=== PATIENT | female | born 1955 | race Two or more races ===

== ENCOUNTER 2025-02-10 17:43 | Inpatient (IN) | payer OTHER, MEDICAID ==
[~2025-02-10] VITALS: Ht 157.5 cm; Wt 107.0 kg
--- NOTE | 2025-02-10 19:58 | ED.PDOC ---
History of Present Illness HPI Comments This is a 69-year-old female who comes in with chief complaint of a headache all day as well as dizziness and shortness for breath. The patient states that the symptoms started to worsened throughout the day so 911 was called. She states that she fell on January 20 but did not strike her head and ever since she has been having some generalized weakness. Everything started at approximately 7:30 a.m. in the morning. When the paramedics arrived, the patient was complaining of some leg pain and swelling and had an elevated blood pressure with a systolic of 190 Chief Complaint: General Weakness Time Seen by MD: 17:48 Primary Care Provider: unknown Reviewed Notes: Nurses Notes, Field Rep Notes, Medications, Allergies (No allergies to medications) Allergies: Coded Allergies: NO KNOWN ALLERGIES (Unverified , 02/10/25) Information Source: Patient, Emergency Med Personnel Mode of Arrival: EMS Severity: Moderate Timing: Hours Duration: Since onset Prehospital treatment: 12 Lead EKG, Sales Order Specialist, IVF Associated signs and symptoms Generalized weakness with headache, shortness for breath as well as right arm numbness Past Medical History PAST MEDICAL HISTORY: CVA, HTN, [place] Surgical History: Hysterectomy Surgical History (Other): Left elbow surgery ADMISSIONS OFFICER History: No Pertinent ADMISSIONS OFFICER History Family History Family History: No family hx of Cancer, No family hx of DM, No family hx of Heart jami Social History Smoker: Non-Smoker Alcohol: Denies ETOH Use Drugs: Denies Drug Use Lives In: Home Constitutional: reports: weakness; denies: chills, diaphoresis, fatigue, fever, malaise, sweats, others EENTM: denies: blurred vision, double vision, ear bleeding, ear discharge, ear drainage, ear pain, ear ringing, eye pain, eye redness, hearing loss, mouth pain, mouth swelling, nasal discharge, nose bleeding, nose congestion, nose pain, photophobia, tearing, throat pain, throat swelling, voice changes, others Respiratory: reports: shortness of breath; denies: cough, hemoptysis, orthopnea, SOB at rest, SOB with excertion, stridor, wheezing, others Cardiovascular: denies: chest pain, dizzy spells, diaphoresis, Dyspnea on exertion, edema, irregular heart beat, left arm pain, lightheadedness, palpitations, PND, syncope, others Gastrointestinal: denies: abdomen distended, abdominal pain, blood streaked bowels, constipated, diarrhea, dysphagia, difficulty swallowing, hematemesis, melena, nausea, poor appetite, poor fluid intake, rectal bleeding, rectal pain, vomiting, others Genitourinary: denies: abnormal vagina bleeding, burning, dyspareunia, dysuria, flank pain, frequency, hematuria, incontinence, pain, , vagina discharge, urgency, others Neurological: reports: dizziness, headache; denies: fainting, left sided numbness, left sided weakness, numbness, paresthesia, pre-existing deficit, right sided numbness, right sided weakness, seizure, speech problems, tingling, tremors, weakness, others Musculoskeletal: denies: back pain, gout, joint pain, joint swelling, muscle pain, muscle stiffness, neck pain, others Integumetry: denies: bruises, change in color, change in hair/nails, dryness, laceration, lesions, lumps, rash, wounds, others Allergic/Immunocompromised: denies: Difficulty Healing, Frequent Infections, Hives, Itching, others Hematologic/Lymphatic: denies: anemia, blood clots, easy bleeding, easy bruising, swollen glands, others Endocrine: denies: excessive hunger, excessive sweating, excessive thirst, excessive urination, flushing, intolerance to cold, intolerance to heat, unexplained weight gain, unexplained weight loss, others Psychiatric: denies: anxiety, bipolar disorder, depression, hopeless, panic disorder, schizophrenia, sleepless, suicidal, others Physical Exam General Appearance: Moderate Distress, Obese HEENT: Normal ENT Inspection, Pharynx Normal, TMs Normal Neck: Full Range of Motion, Non-Tender, Normal, Normal Inspection Respiratory: Chest Non-Tender, Lungs Clear, No Accessory Muscle Use, No Respiratory Distress, Normal Breath Sounds Cardiovascular: Irregular, No Edema, No JVD, No Murmur, No Gallop Breast Exam: Deferred Gastrointestinal: No Organomegaly, Non Tender, No Pulsatile Mass, Normal Bowel Sounds, Soft Genitalia: Deferred Pelvic: Deferred Rectal: Deferred Extremities: No calf tenderness, Normal capillary refill, Normal inspection, Normal range of motion, Non-tender, No pedal edema Musculoskeletal : Apperance: Normal Neurologic: Alert, cuffer II-XII nml as Tested, Motor Weakness, Normal Affect, Normal Mood, No Sensory Deficits Cerebellar Function: Normal Reflexes: Normal Skin: Dry, Normal Color, Warm Lymphatic: No Adenopathy Was a procedure done? Was a procedure done?: No EKG EKG : Pulse Rate (adult): 68 Buckhorn: Normal Cardiac Rhythm: Afib ST: Nonsp Differential Dx Considerations may include: Generalized weakness, electrolyte imbalance, pneumonia, CVA X-Ray, Labs, Meds, VS Vital Signs Date Time Temp Pulse Resp B/P (MAP) Pulse Ox O2 Delivery O2 Flow Rate FiO2 02/10/25 20:40 98.7 68 16 183/70 (107) 96 98.7 02/10/25 19:58 68 02/10/25 17:53 65 02/10/25 17:53 98.8 68 16 169/67 (101) 98 98.8 Lab Test 02/10/25 20:01 Range/Units White Blood Count 6.7 4.4-10.8 10^3/uL Red Blood Count 5.21 H 4.0-5.20 10^6/uL Hemoglobin 15.8 12.2-16.2 g/dL Hematocrit 46.1 H 36.0-46.0 % Mean Corpuscular Volume 88.5 80.0-100.0 fL Mean Corpuscular Hemoglobin 30.2 28.0-32.0 pg Mean Corpuscular Hemoglobin Concent 34.2 32.0-36.0 g/dL Red Cell Distribution Width 13.5 11.8-14.3 % Platelet Count 206 140-450 10^3/uL Mean Platelet Volume 8.5 6.9-10.8 fL Neutrophils (%) (Auto) 58.3 37.0-80.0 % Lymphocytes (%) (Auto) 27.2 10.0-50.0 % Monocytes (%) (Auto) 8.5 0.0-12.0 % Eosinophils (%) (Auto) 5.0 0.0-7.0 % Basophils (%) (Auto) 1.0 0.0-2.0 % Neutrophils # (Auto) 3.9 1.6-8.6 10 ^3/uL Lymphocytes # (Auto) 1.8 0.4-5.4 10 ^3/uL Monocytes # (Auto) 0.6 0-1.3 10 ^3/uL Eosinophils # (Auto) 0.3 0-0.8 10 ^3/uL Basophils # (Auto) 0.1 0-0.2 10 ^3/uL Nucleated Red Blood Cells 0.1 % Sodium Level 144 136-145 mmol/L Potassium Level 3.8 3.5-5.1 mmol/L Chloride Level 105 98-107 mmol/L Carbon Dioxide Level 30 20-31 mmol/L Anion Gap 9 5-15 Blood Urea Nitrogen 17 9-23 mg/dL Creatinine 1.02 0.550-1.02 mg/dL Glomerular Filtration Rate Calc 60 >90 mL/min BUN/Creatinine Ratio 16.7 10.0-20.0 Serum Glucose 130 H 74-106 mg/dL Calcium Level 10.1 8.7-10.4 mg/dL Troponin I High Sensitivity 78 *H </=34 ng/L IV Hep-Lock was established CT Head indicates: 1. No prior study for comparison 2. Large area of encephalomalacia in the right temporoparietal lobe with tissue density consistent with CSF. IV Hep-Lock was established. The patient's CBC is within normal limits The chemistry panel within normal limits The troponin level is elevated at 78 The patient's potassium is within normal limits Is being started on for just heparin IV A cardiology consult will be obtained The patient is admitted Images Reviewed?: Images reviewed and evaluated by me Time of 1ST Reevaluation: 19:57 Reevaluation 1ST: Unchanged Time of 2ND Reevaluation: 21:11 Reevaluation 2ND: Unchanged Patient Education/Counseling: Diagnosis, Treatment, Prognosis Family Education/Counseling: No Family Present SEPSIS Sepsis Screen Date sepsis recognized/suspect: Feb 10, 2025 Time Sepsis recognized/suspect: 1744 Recent Procedure: No On Antibiotic Therapy: No Respiratory Rate >20: No Heart Rate >90: No Temp<36 C (96.8 F) or >38.3 C: No SBP <90 or MAP <65 mmHG: No New Acute Mental Status Change: No Is the patient on CPAP, BIPAP,: No Physician Orders Urinalysis (02/10/25 17:51) Chest Two Views Routine (02/10/25 17:51) Heplock Iv (02/10/25 17:51) Sales Order Specialist (02/10/25 17:51) Blood Pressure (02/10/25 17:51) Pulse Oximetry (02/10/25 17:51) Electrocardigram (02/10/25 17:51) Head Without Contrast (02/10/25 17:51) Troponin-I Hs (02/10/25 18:51) Troponin-I Hs (02/10/25 20:51) Electrocardigram (02/10/25 18:51) Electrocardigram (02/10/25 20:51) Heparin Sodium (Porcine) (02/10/25 21:15) Aspirin Tablet (02/12/25 10:00) Heparin Drip/D5w 100units/Ml (02/10/25 21:15) Echo 2d Mode Cardiac Dop (02/10/25 21:01) Vital Signs Date Time Temp Pulse Resp B/P (MAP) Pulse Ox O2 Delivery O2 Flow Rate FiO2 02/10/25 20:40 98.7 68 16 183/70 (107) 96 98.7 02/10/25 19:58 68 02/10/25 17:53 65 02/10/25 17:53 98.8 68 16 169/67 (101) 98 98.8 Laboratory Tests Test 02/10/25 20:01 White Blood Count 6.7 10^3/uL (4.4-10.8) Departure 1 Departure Time of Disposition: 21:10 Impression: Primary Impression: Non-STEMI (non-ST elevated myocardial infarction) Disposition: 09 ADMITTED INPATIENT Admit to: Tele Condition: Fair Critical Care Note Critical Care Time?: Yes (45 min-critical care time only) Stability Stability form required: Yes Unstable for transfer: Telemetry monitoring (Telemetry monitoring required), ED Physician Assesment (Clinical assesment) Heart Score Heart Score: Heart Score Response (Comments) Value History Moderate Suspicious 1 EKG Normal 0 Age >65 2 Risk Factors 1 or 2 risk factors 1 Troponin Normal limit 0 Total 4 I personally scribed for TETO MCKEON MD ([email or web address]) on 02/10/25 at 20:59. Electronically submitted by Magdy Quinonez ([email or web address]). TETO MCKEON MD Feb 10, 2025 19:58
[2025-02-10 20:23] LABS: Basophils # (auto) 0.1 10 ^3/uL (0-0.2); Eosinophils # (auto) 0.3 10 ^3/uL (0-0.8); Hematocrit 46.1 % (36.0-46.0); Hemoglobin 15.8 g/dL (12.2-16.2); Lymphocytes # (auto) 1.8 10 ^3/uL (0.4-5.4); Lymphocytes % (auto) 27.2 % (10.0-50.0); Mean Corpuscular Hemoglobin 30.2 pg (28.0-32.0); Mean Corpuscular Hgb Conc. 34.2 g/dL (32.0-36.0); Mean Corpuscular Volume 88.5 fL (80.0-100.0); Monocytes # (auto) 0.6 10 ^3/uL (0-1.3); Monocytes % (auto) 8.5 % (0.0-12.0); Neutrophils # (auto) 3.9 10 ^3/uL (1.6-8.6); Neutrophils % (auto) 58.3 % (37.0-80.0); Nucleated Red Blood Cells % 0.1 %; Platelet Count (auto) 206 10^3/uL (140-450); Red Blood Cells 5.21 10^6/uL (4.0-5.20); Red Cell Distribution Width 13.5 % (11.8-14.3); White Blood Cell 6.7 10^3/uL (4.4-10.8)
[2025-02-10 20:48] LABS: Chloride 105 mmol/L (98-107); Potassium 3.8 mmol/L (3.5-5.1); Sodium 144 mmol/L (136-145)
[2025-02-10 20:49] LABS: Anion Gap 9 (5-15); Calcium 10.1 mg/dL (8.7-10.4); Carbon Dioxide 30 mmol/L (20-31)
[2025-02-10 20:54] LABS: BUN/Creatinine Ratio 16.7 (10.0-20.0); Blood Urea Nitrogen 17 mg/dL (9-23)
[2025-02-10 20:55] LABS: Glucose 130 mg/dL (74-106)
--- NOTE | 2025-02-10 20:55 | DVH ---
EXAM: CT HEAD WITHOUT CONTRAST INDICATION: BOOGIE TECHNIQUE: CT of the head without intravenous contrast. Radiation Dose Information: CT Dose: CTDI volume is 64.52 mGy. Dose-length product is 1271.22 mGy*cm The dose indicators for CT are the volume Computed Tomography (CT) Dose Index (CTDIvol) and the Dose Length Product (DLP), and are measured in units of mGy and mGy-cm, respectively. These indicators are not patient dose, but values generated from the CT scanner acquisition factors. The report includes radiation exposure data for exposures received during this examination. COMPARISON: None FINDINGS: There is no evidence of acute intracranial hemorrhage, extra-axial collection, mass effect, midline s hift, herniation or hydrocephalus. Replacement of the right temporal/Parietal lobe by large area of encephalomalacia with tissue density of 4 Hounsfield units consistent with CSF. The ventricles, sulci and cisterns are age appropriate. The rice-white differentiation is intact. Patchy periventricular and subcortical white matter hypoattenuation is nonspecific but may be related to small vessel ischemic disease. The visualized paranasal sinuses and mastoid air cells are clear. The surrounding soft tissues and osseous structures are unremarkable. IMPRESSION: 1. No prior study for comparison 2. Large area of encephalomalacia in the right temporoparietal lobe with tissue density consistent wi th CSF.
--- NOTE | 2025-02-10 21:00 | DVH ---
EXAM: XY CHEST TWO VIEWS ROUTINE CLINICAL HISTORY: weakness TECHNIQUE: AP and lateral views of the chest WID: COMPARISON: None FINDINGS: Lines and tubes: None Chest: Mild cardiomegaly. Calcified plaque projects over the aortic arch. No pleural effusion, pneumothorax, or consolidation. The osseous structures are grossly intact. Multilevel thoracic spondylosis. IMPRESSION: Mild cardiomegaly without CHF or pneumonia.
[2025-02-10 22:29] LABS: INR 0.97 (0.9-1.15); Partial Thromboplastin Time 26.2 SEC (24.5-34.5); Prothrombin Time 10.3 sec (9.3-11.8)
[2025-02-10] MEDS ORDERED: DOCUSATE SOD 100 MG CAP PO PRN (23:00)
[2025-02-10 23:35] LABS: Urine Bacteria None Seen /hpf (None Seen)
--- NOTE | 2025-02-10 23:47 | DVHHP2 ---
History of Present Illness Reason for Visit: Non-STEMI (non-ST elevated myocardial infarction) History of Present Illness The patient is a 69-year-old female with past medical history of CVA, hypertens ion, and LA who presented to [facility] ED with complaint of headache. Patient reports she has been experiencing headache for the past two days, associated with dizziness, shortness of breaths. She states that she fell on January 20 but did not strike her head and ever since she has been having some generalized weakness. Patient was seen and evaluated in the ED, laboratory data shows WBC 6.7, platelets 206, sodium 144, potassium 3.8, BUN 17, creatinine 1.02, glucose 130, calcium 10.1, troponin 78, blood pressure 183/70, heart rate 68, temperature 98.7 F, O2 saturation 96% on oxygen. Chest x-ray revealing mild cardiomegaly without CHF or pneumonia. Head CT revealing large area of encephalomalacia in the right temporoparietal lobe with tissue density consistent with CSF. Please see medication orders section in the computer. On my assessment, patient denied chest pain, no headache, no dizziness, no diaphoresis, currently on oxygen, no nausea, no vomiting, no fever, no chills. Patient was admitted for further evaluation and medical management. Past Medical History CVA, HTN, LA Past Surgical History Hysterectomy, Left elbow surgery Family History Reviewed, noncontributory to the management of this case. Past Social History The patient lives at home, denies smoking, alcohol or illicit drugs abuse. Review of Systems Constitutional: Yes: Weakness; No: Fever, Chills, Sweats, Malaise, Other Eyes: No: Pain, Vision change, Conjunctivae inflammation, Eyelid inflammation, Other, Redness ENT: No: Ear pain, Ear discharge, Nose pain, Nose discharge, Nose congestion, Mouth pain, Mouth swelling, Throat pain, Throat swelling, Other Respiratory: Shortness of breath; No: Cough, Dry, SOB with excertion, Wheezing, Hemoptysis, Pleuritic Pain, Sputum, Wheezing, Other Cardiovascular: No: Chest Pain, Palpitations, Orthopnea, Paroxysmal Noc. Dyspnea, Edema, Lt Headedness, Other Gastrointestinal: No: Nausea, Vomiting, Abdominal Pain, Diarrhea, Constipation, Melena, Hematochezia, Other Genitourinary: No Dysuria, No Frequency, No Incontinence, No Hematuria, No Retention, No Other Musculoskeletal: No: other, neck pain, shoulder pain, arm pain, back pain, hand pain, leg pain, foot pain Skin: No: Rash, Lesions, Jaundice, Bruising, Other Neurological: Other (Dizziness, headache.); No: Weakness, Numbness, Incoordination, Change in speech, Confusion, Seizures Allergies: Coded Allergies: NO KNOWN ALLERGIES (Unverified , 02/10/25) Medications Current Medications Medications Dose Ordered Sig/Cristine Route Start Time Stop Time Status Last Admin Dose Admin Aspirin 81 mg DAILY PO 02/12/25 10:00 Heparin Sodium/ Dextrose 250 ml @ 10 mls/hr Q24H IV 02/10/25 21:15 Amlodipine Besylate 5 mg DAILY PO 02/11/25 10:00 Hydralazine HCl 10 mg Q6HP PRN IV 02/10/25 23:00 Atorvastatin Calcium 20 mg HS PO 02/11/25 22:00 Azithromycin 250 ml @ 125 mls/hr DAILY IV 02/11/25 10:00 UNV Sodium Chloride 10 ml Q8HR IV 02/11/25 06:00 Acetaminophen/ Hydrocodone Bitart 1 tab Q4HP PRN PO 02/10/25 23:00 Ondansetron HCl 4 mg Q4HP PRN IV 02/10/25 23:00 Docusate Sodium 100 mg BIDPRN PRN PO 02/10/25 23:00 Acetaminophen 650 mg Q6HP PRN PO 02/10/25 23:00 Exam Vital Signs Vital Signs Date Time Temp Pulse Resp B/P (MAP) Pulse Ox O2 Delivery O2 Flow Rate FiO2 02/10/25 23:46 98.7 82 18 193/70 (111) 92 98.7 General Appearance: Alert, Oriented X3, Cooperative, No acute distress HEENT: Atraumatic, PERRLA, EOMI, Mucous membr. moist/pink Respiratory: Normal air movement Cardiovascular: Regular rate, Normal S1, Normal S2, No murmurs Abdominal: Normal bowel sounds, Soft, No tenderness, No hepatospenomegaly, No masses Extremities: No clubbing, No cyanosis, No edema, Normal pulses, No tenderness/swelling Skin: No rashes, No breakdown, No significant lesion Neuro: Normal speech, Normal tone, Sensation intact, Cranial nerves 3-12 NL, Reflexes 2+, Other (Generalized weakness) Psych/Mental Status: Mental status NL, Mood NL Labs/Xrays Labs Test 02/10/25 23:00 02/10/25 22:50 02/10/25 20:01 Range/Units Troponin I High Sensitivity 81 *H </=34 ng/L White Blood Count 6.7 4.4-10.8 10^3/uL Red Blood Count 5.21 H 4.0-5.20 10^6/uL Hemoglobin 15.8 12.2-16.2 g/dL Hematocrit 46.1 H 36.0-46.0 % Mean Corpuscular Volume 88.5 80.0-100.0 fL Mean Corpuscular Hemoglobin 30.2 28.0-32.0 pg Mean Corpuscular Hemoglobin Concent 34.2 32.0-36.0 g/dL Red Cell Distribution Width 13.5 11.8-14.3 % Platelet Count 206 140-450 10^3/uL Mean Platelet Volume 8.5 6.9-10.8 fL Neutrophils (%) (Auto) 58.3 37.0-80.0 % Lymphocytes (%) (Auto) 27.2 10.0-50.0 % Monocytes (%) (Auto) 8.5 0.0-12.0 % Eosinophils (%) (Auto) 5.0 0.0-7.0 % Basophils (%) (Auto) 1.0 0.0-2.0 % Neutrophils # (Auto) 3.9 1.6-8.6 10 ^3/uL Lymphocytes # (Auto) 1.8 0.4-5.4 10 ^3/uL Monocytes # (Auto) 0.6 0-1.3 10 ^3/uL Eosinophils # (Auto) 0.3 0-0.8 10 ^3/uL Basophils # (Auto) 0.1 0-0.2 10 ^3/uL Nucleated Red Blood Cells 0.1 % Prothrombin Time 10.3 9.3-11.8 sec Prothrombin Time INR 0.97 0.9-1.15 Activated Partial Thromboplast Time 26.2 24.5-34.5 SEC Sodium Level 144 136-145 mmol/L Potassium Level 3.8 3.5-5.1 mmol/L Chloride Level 105 98-107 mmol/L Carbon Dioxide Level 30 20-31 mmol/L Anion Gap 9 5-15 Blood Urea Nitrogen 17 9-23 mg/dL Creatinine 1.02 0.550-1.02 mg/dL Glomerular Filtration Rate Calc 60 >90 mL/min BUN/Creatinine Ratio 16.7 10.0-20.0 Serum Glucose 130 H 74-106 mg/dL Calcium Level 10.1 8.7-10.4 mg/dL PATIENT: ABHISHEK DICKERSON ACCT: [id number] UNIT: [id number] : 1955 LOC: ER ROOM / BED: / AGE / SEX: 69 / F ADM STATUS: REG ER SERVICE [id number] ORDERING PHYSICIAN: TETO MCKEON MD PROCEDURE(s): HWOCT - HEAD WITHOUT CONTRAST REASON: BOOGIE ORDER NUMBER(s): [id number], ACCESSION NUMBER(s): [id number] EXAM: CT HEAD WITHOUT CONTRAST INDICATION: BOOGIE TECHNIQUE: CT of the head without intravenous contrast. Radiation Dose Information: CT Dose: CTDI volume is 64.52 mGy. Dose-length product is 1271.22 mGy*cm The dose indicators for CT are the volume Computed Tomography (CT) Dose Index (CTDIvol) and the Dose Length Product (DLP), and are measured in units of mGy and mGy-cm, respectively. These indicators are not patient dose, but values generated from the CT scanner acquisition factors. The report includes radiation exposure data for exposures received during this examination. COMPARISON: None FINDINGS: There is no evidence of acute intracranial hemorrhage, extra-axial collection, mass effect, midline shift, herniation or hydrocephalus. Replacement of the right temporal/Parietal lobe by large area of encephalomalacia with tissue density of 4 Hounsfield units consistent with CSF. The ventricles, sulci and cisterns are age appropriate. The rice-white differentiation is intact. Patchy periventricular and subcortical white matter hypoattenuation is nonspecific but may be related to small vessel ischemic disease. The visualized paranasal sinuses and mastoid air cells are clear. The surrounding soft tissues and osseous structures are unremarkable. IMPRESSION: 1. No prior study for comparison 2. Large area of encephalomalacia in the right temporoparietal lobe with tissue density consistent with CSF. ORDERING PHYSICIAN: TETO MCKEON MD PROCEDURE(s): CXR2 - CHEST TWO VIEWS ROUTINE REASON: weakness ORDER NUMBER(s): [id number], ACCESSION NUMBER(s): [id number] EXAM: XY CHEST TWO VIEWS ROUTINE CLINICAL HISTORY: weakness TECHNIQUE: AP and lateral views of the chest WID: COMPARISON: None FINDINGS: Lines and tubes: None Chest: Mild cardiomegaly. Calcified plaque projects over the aortic arch. No pleural effusion, pneumothorax, or consolidation. The osseous structures are grossly intact. Multilevel thoracic spondylosis. IMPRESSION: Mild cardiomegaly without CHF or pneumonia. Assessment/Plan Assessment/Plan Non-STEMI (non-ST elevated myocardial infarction) Hypertensive urgency Generalized weakness Plan 1. Admit to telemetry unit 2. Breathing treatment 3. Pain control management 4. Management of fluids and electrolytes 5. Consultation for Cardiology/hospitalist 6. Diagnostic tests chest x-ray 7. DVT prophylaxis-on heparin 8. Repeat labs CBC, CMP in a.m. 9. Continue with current medical management 10. Treatment plan discussed with patient and RN. Patient verbalized understanding. Plan discussed with: Patient, Other (RN) My Orders Orders - NETTIE HAYNES DNP Procedure Category Date Status Time Amlodipine Tablet PHA 02/11/25 In Process (Norvasc Tablet) 10:00 Hydralazine Injection PHA 02/10/25 In Process (Apresoline Inject 23:00 Atorvastatin (Lipitor) PHA 02/11/25 In Process 22:00 Azithromycin 500mg/ PHA 02/11/25 Pending 250ml (Zithromax 50 10:00 Azithromycin 500mg/ PHA 02/10/25 In Process 250ml (Zithromax 50 23:00 Allergies LUIZA 02/10/25 In Process 22:49 Code Status CODE 02/10/25 Transmitted 22:49 Sodium Chloride Lock PHA 02/11/25 In Process (Saline Lock Ns) 06:00 Oxygen Per Hour RT 02/10/25 Transmitted 22:49 Hydrocodone-Acet PHA 02/10/25 In Process 5/325mg Tab (Grant 23:00 Ondansetron Hcl PHA 02/10/25 In Process (Zofran) 23:00 Docusate Sodium PHA 02/10/25 In Process Capsule (Colace 23:00 Complete Blood Count LAB 02/11/25 Verified 04:00 Comprehensive LAB 02/11/25 Verified Metabolic Panel 04:00 Cardiac DIET 02/11/25 Transmitted Diet-2gna,Lofat,Lochol Breakfast Condition: Serious LUIZA 02/10/25 In Process 22:49 Acetaminophen Tablet PHA 02/10/25 In Process (Tylenol Tablet) 23:00 Bedrest With Bathroom LUIZA 02/10/25 In Process Privileg 22:49 Sequential LUIZA 02/10/25 In Process Compression Device Problem List: (1) Non-STEMI (non-ST elevated myocardial infarction) (2) Hypertensive urgency (3) Generalized weakness Date of Service: Feb 10, 2025 Billing Provider: NETTIE HAYNES DNP Common Visit Codes: [id number] INP/OBS CARE (HIGH) NETTIE HAYNES DNP Feb 10, 2025 23:47
[2025-02-11] VITALS (14 sets, daily range): BP systolic 123–178; BP diastolic 30–90; PULSE 66–88; RESP 17–20; TEMP 98.2–99.6; O2SAT 88–99
[2025-02-11] MEDS ORDERED: NITROGLYCERIN 0.4 MG SL TAB SL PRN
[2025-02-11] MEDS ORDERED: MORPHINE SULFATE INJ 2 MG/ml SYRG IV PRN
[2025-02-11] MEDS: MORPHINE SULFATE 4 MG/ML SYR/VIAL ONE (00:13)
[2025-02-11] MEDS: ONDANSETRON HCL 4 MG/2 ML VIAL ONE (00:13)
[2025-02-11] MEDS: AZITHROMYCIN 500MG/ 250ML 250 ML IV ONE ×2 (00:13→00:19)
[2025-02-11] MEDS: HEPARIN SODIUM (PORCINE) 5000 UNITS/ML 1ML VIAL ONE (00:14)
[2025-02-11 00:18] LABS: Urine Amorphous Crystal FEW /hpf (None Seen); Urine Blood TRACE /uL (Negative); Urine Clarity Ex.Turbid (Clear); Urine Color Colorless (Yellow); Urine Protein, UAD TRACE (Negative); Urine Specific Gravity 1.021 (1.001-1.035); Urine Squamous Epithelial Cell None Seen /hpf (<5); Urine Urobilinogen Normal (Negative); Urine WBC 11 /HPF (0-5)
[2025-02-11] MEDS: ONDANSETRON HCL 4 MG/2 ML VIAL IV ONE (00:19)
[2025-02-11] MEDS: MORPHINE SULFATE 4 MG/ML SYR/VIAL IV ONE (00:19)
[2025-02-11] MEDS: HEPARIN SODIUM (PORCINE) 5000 UNITS/ML 1ML VIAL IV ONE ×2 (00:20→13:39)
[2025-02-11] MEDS: hydrALAZINE HCL 20 MG/ML VL IV PRN (01:16)
[2025-02-11] MEDS: HEPARIN DRIP/D5W 100UNITS/ML 250 ML IV SCH ×2 (01:18→11:45)
[2025-02-11] MEDS: HEPARIN DRIP/D5W 100UNITS/ML 250 ML IV ONE (01:32)
[2025-02-11] MEDS: hydrALAZINE HCL 20 MG/ML VL ONE (01:33)
[2025-02-11] MEDS: ACETAMINOPHEN 325 MG TAB PO PRN (03:19)
[2025-02-11] MEDS: SODIUM CHLOR 0.9% PF (SALINE LOCK) 10ML VIAL/SYR IV SCH (06:12)
[2025-02-11 08:01] LABS: Basophils # (auto) 0.1 10 ^3/uL (0-0.2); Basophils % (auto) 0.8 % (0.0-2.0); Eosinophils # (auto) 0.3 10 ^3/uL (0-0.8); Eosinophils % (auto) 3.2 % (0.0-7.0); Hematocrit 41.6 % (36.0-46.0); Hemoglobin 14.4 g/dL (12.2-16.2); Lymphocytes % (auto) 22.1 % (10.0-50.0); Mean Corpuscular Hemoglobin 30.5 pg (28.0-32.0); Mean Corpuscular Hgb Conc. 34.6 g/dL (32.0-36.0); Mean Corpuscular Volume 88.2 fL (80.0-100.0); Monocytes # (auto) 0.7 10 ^3/uL (0-1.3); Monocytes % (auto) 8.1 % (0.0-12.0); Neutrophils % (auto) 65.8 % (37.0-80.0); Nucleated Red Blood Cells % 0.2 %; Platelet Count (auto) 192 10^3/uL (140-450); Red Blood Cells 4.71 10^6/uL (4.0-5.20); Red Cell Distribution Width 13.7 % (11.8-14.3); White Blood Cell 9.1 10^3/uL (4.4-10.8)
[2025-02-11 08:14] LABS: INR 1.02 (0.9-1.15); Partial Thromboplastin Time 29.6 SEC (24.5-34.5); Prothrombin Time 10.8 sec (9.3-11.8)
[2025-02-11 08:17] LABS: Albumin 4.2 g/dL (3.2-4.8); Alkaline Phosphatase 105 U/L (46-116); Anion Gap 10 (5-15); BUN/Creatinine Ratio 14.5 (10.0-20.0); Blood Urea Nitrogen 12 mg/dL (9-23); Calcium 9.1 mg/dL (8.7-10.4); Carbon Dioxide 25 mmol/L (20-31); Potassium 3.5 mmol/L (3.5-5.1); Sodium 143 mmol/L (136-145); Total Protein 6.8 g/dL (5.7-8.2)
[2025-02-11 08:18] LABS: Bilirubin, Total 0.7 mg/dL (0.2-1.0)
[2025-02-11 08:20] LABS: Alanine Aminotransferase 110 U/L (7-40); Aspartate Aminotransferase 207 U/L (<34); Chloride 108 mmol/L (98-107); Glucose 109 mg/dL (74-106)
[2025-02-11] MEDS: amLODIPine BESYLATE 5 MG TAB PO SCH (09:45)
[2025-02-11] MEDS ORDERED: AZITHROMYCIN 500MG/ 250ML 250 ML IV SCH (10:00)
--- NOTE | 2025-02-11 11:48 | CONS ---
Pharmacy Clinical Information: GIVE HEPARIN BOLUS 5000 UNITS X1 THEN INCREASE HEPARIN DRIPS RATE TO 1300 UNITS/HR. NEXT APTT @ 1800 PER RX PROTOCOL. BEBETO HANSON CONFIRMED AND READ BACK Karen Torres PHARMACIST Feb 11, 2025 11:48
--- NOTE | 2025-02-11 13:35 | DVHPN2 ---
Reviewed: Care Plan, H&P, Labs, Medications, Previous Orders, Radiology Changes from previous H/P or p: No Changes Eyes: No Pain, No Vision change, No Conjunctivae inflammation, No Eyelid inflammation, No Other, No Redness ENT: No Ear pain, No Ear discharge, No Nose pain, No Nose discharge, No Nose congestion, No Mouth pain, No Mouth swelling, No Throat pain, No Throat swelling, No Other Cardiovascular: No Chest Pain, No Palpitations, No Orthopnea, No Paroxysmal Noc. Dyspnea, No Edema, No Lt Headedness, No Other Respiratory: No Cough, No Dry; Shortness of breath; No SOB with excertion, No Wheezing, No Hemoptysis, No Pleuritic Pain, No Sputum, No Other Gastrointestinal: No Nausea, No Vomiting, No Abdominal Pain, No Diarrhea, No Constipation, No Melena, No Hematochezia, No Other Genitourinary: No Dysuria, No Frequency, No Incontinence, No Hematuria, No Retention, No Other Musculoskeletal: No other, No neck pain, No shoulder pain, No arm pain, No back pain, No hand pain, No leg pain, No foot pain Skin: No Rash, No Lesions, No Jaundice, No Bruising, No Other Objective Vitals Vital Signs Date Time Temp Pulse Resp B/P (MAP) Pulse Ox O2 Delivery O2 Flow Rate FiO2 02/11/25 09:47 159/63 02/11/25 08:37 98.2 69 18 95 98.2 02/11/25 01:42 Room Air* 0 21 Intake/Output Intake and Output 02/11/25 07:00 Intake Total 250 ml Balance 250 ml Intake Oral 200 ml IV Total 50 ml Medications Current Medications Medications Dose Ordered Sig/Cristine Route Start Time Stop Time Status Last Admin Dose Admin Aspirin 81 mg DAILY PO 02/12/25 10:00 Amlodipine Besylate 5 mg DAILY PO 02/11/25 10:00 02/11/25 09:45 5 MG Hydralazine HCl 10 mg Q6HP PRN IV 02/10/25 23:00 02/11/25 09:47 10 MG Atorvastatin Calcium 20 mg HS PO 02/11/25 22:00 Sodium Chloride 10 ml Q8HR IV 02/11/25 06:00 02/11/25 06:12 10 ML Acetaminophen/ Hydrocodone Bitart 1 tab Q4HP PRN PO 02/10/25 23:00 Ondansetron HCl 4 mg Q4HP PRN IV 02/10/25 23:00 Docusate Sodium 100 mg BIDPRN PRN PO 02/10/25 23:00 Acetaminophen 650 mg Q6HP PRN PO 02/10/25 23:00 02/11/25 03:19 650 MG Nitroglycerin 0.4 mg Q5MINP PRN SL 02/11/25 00:00 Morphine Sulfate 2 mg Q30M PRN IV 02/11/25 00:00 Heparin Sodium/ Dextrose 250 ml @ 13 mls/hr [id number] IV 02/11/25 11:45 Laboratory Results Laboratory Tests 02/11/25 07:20 Chemistry Test 02/10/25 20:01 02/11/25 07:20 Calcium Level 10.1 mg/dL (8.7-10.4) 9.1 mg/dL (8.7-10.4) Albumin 4.2 g/dL (3.2-4.8) Total Protein 6.8 g/dL (5.7-8.2) Coagulation Test 02/10/25 20:01 02/11/25 07:20 Prothrombin Time 10.3 sec (9.3-11.8) 10.8 sec (9.3-11.8) Prothrombin Time INR 0.97 (0.9-1.15) 1.02 (0.9-1.15) Activated Partial Thromboplast Time 26.2 SEC (24.5-34.5) 29.6 SEC (24.5-34.5) LFT Test 02/11/25 07:20 Alanine Aminotransferase (ALT) 110 U/L (7-40) H Alkaline Phosphatase 105 U/L (46-116) Aspartate Amino Transferase (AST) 207 U/L (<34) H Total Bilirubin 0.7 mg/dL (0.2-1.0) Urinalysis Test 02/10/25 23:00 Urine Color Colorless (Yellow) Urine Clarity Ex.turbid (Clear) Urine pH 7.0 (5.0-9.0) Urine Specific [place] 1.021 (1.001-1.035) Urine Protein Trace (Negative) H Urine Ketones Negative (Negative) Urine Blood Trace /uL (Negative) H Urine Nitrite Negative (Negative) Urine Bilirubin Negative (Negative) Urine Urobilinogen Normal mg/dL (Negative) Urine Leukocyte Esterase Negative /uL (Negative) Urine RBC 4 /hpf (0 - 4) Urine Microscopic WBC 11 /HPF (0-5) H Urine Squamous Epithelial Cells None seen /hpf (<5) Urine Amorphous Crystals Few /hpf (None Seen) Urine Bacteria None seen /hpf (None Seen) Urine Glucose Normal mg/dL (Normal) Labs and/or images reviewed: Labs reviewed by me, Image(s) reviewed by me Assessment/Plan Assessment/Plan Elevated troponin rule out coronary artery disease: Troponin slightly elevated 74 Heparin per protocol, treatment per ACS protocol, cardiology consult by Dr. 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
--- NOTE | 2025-02-11 14:32 | DVHCONRES ---
Date Seen: Feb 11, 2025 Resident Creating Document: GIORGIO MARQUEZ RESIDENT Referring Physician Dr. 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 According to the patient, 1 week ago while she was lying down with the travel pillow under her neck, she had an onset of a headache which she localizes to the back of her head, 10/10 in intensity without any exacerbating or relieving factors. Per patient, headache has been continuing off and on for the last 1 week which is what prompted this visit to the hospital. Headache was associated with severe generalized weakness, denies any vision changes. On review of systems patient is complaining of fatigue, chills, shortness of breath on exertion, loss of appetite. Currently patient denies any active ongoing headaches or chest pain or dyspnea. Serial troponins were 78, 74, 81. EKG did not show any ST elevations or depressions. Patient notes uses a walker and a cane at baseline to ambulate. However, patient does note she has had reduced mobility for the last 4 weeks. 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, hypertension, NSTEMI type 2, sleep apnea on CPAP Past Surgical History Cholecystectomy, x2, left elbow surgery s/p fracture Family History: Asthma Cerebrovascular accident (CVA) G8 MOTHER Diabetes mellitus G8 MOTHER FH: heart attack Hypertension G8 MOTHER Social History Smoking: Denies Alcohol: Denies Drugs: Denies Allergies: Coded Allergies: NO KNOWN ALLERGIES (Unverified , 02/10/25) Current Medications Current Medications Medications (Trade) Dose Ordered Sig/Cristine Route PRN Reason Start Time Stop Time Status Last Admin Aspirin 81 mg DAILY PO 02/12/25 10:00 Heparin Sodium/ Dextrose 250 ml @ 10 mls/hr Q24H IV 02/10/25 21:15 02/11/25 11:34 DC 02/11/25 01:18 Amlodipine Besylate (Norvasc Tablet) 5 mg DAILY PO 02/11/25 10:00 02/11/25 09:45 Hydralazine HCl (Apresoline Injection) 10 mg Q6HP PRN IV SBP>150 02/10/25 23:00 02/11/25 09:47 Atorvastatin Calcium (Lipitor) 20 mg HS PO 02/11/25 22:00 Azithromycin 250 ml @ 125 mls/hr DAILY IV 02/11/25 10:00 02/11/25 01:04 DC Sodium Chloride (Saline Lock Ns) 10 ml Q8HR IV 02/11/25 06:00 02/11/25 06:12 Acetaminophen/ Hydrocodone Bitart ([place] 5/325MG Tab) 1 tab Q4HP PRN PO MODERATE PAIN (4-6 PAIN SCALE) 02/10/25 23:00 Ondansetron HCl (Zofran) 4 mg Q4HP PRN IV NAUSEA / VOMITING 02/10/25 23:00 Docusate Sodium (Colace Capsule) 100 mg BIDPRN PRN PO FOR CONSTIPATION 02/10/25 23:00 Acetaminophen (Tylenol Tablet) 650 mg Q6HP PRN PO PAIN SCALE 1-3 OR TEMP>100.4 02/10/25 23:00 02/11/25 03:19 Nitroglycerin (Ntrostat Sublingual) 0.4 mg Q5MINP PRN SL FOR CHEST PAIN 02/11/25 00:00 Morphine Sulfate 2 mg Q30M PRN IV FOR CHEST PAIN 02/11/25 00:00 Heparin Sodium/ Dextrose 250 ml @ 13 mls/hr [id number] IV 02/11/25 11:45 02/11/25 11:45 Review of Systems Patient seen and examined at bedside. Patient is alert and oriented to time, place person and responding to all questions. General: Fatigue, chills Eyes: No Pain, No Vision change, No Conjunctivae inflammation, No Eyelid inflammation, No Other, No Redness ENT: No Ear pain, No Ear discharge, No Nose pain, No Nose discharge, No Nose congestion, No Mouth pain, No Mouth swelling, No Throat pain, No Throat swelling, No Other Cardiovascular: No Chest Pain, No Palpitations, No Orthopnea, No Paroxysmal No Dyspnea, No Edema, No Lt Headedness, No Other Respiratory: No Cough, No Dry, No Shortness of breath, SOB with exertion, No Wheezing, No Hemoptysis, No Pleuritic Pain, No Sputum, No Other Gastrointestinal: Nausea, No Vomiting, No Abdominal Pain, No Diarrhea, No Constipation, No Melena, No Hematochezia, No Other Genitourinary: No Dysuria, No Frequency, No Incontinence, No Hematuria, No Retention, No Other Musculoskeletal: No other, No neck pain, No shoulder pain, No arm pain, No back pain, No hand pain, No leg pain, No foot pain Skin: No Rash, No Lesions, No Jaundice, No Bruising, No Other Vital Signs Vital Signs Date Time Temp Pulse Resp B/P (MAP) Pulse Ox O2 Delivery O2 Flow Rate FiO2 02/11/25 09:47 159/63 02/11/25 08:37 98.2 69 18 95 98.2 02/11/25 01:42 Room Air* 0 21 Physical Exam General Appearance: Cooperative. Well developed. Well nourished. NAD Head Exam: Normal inspection Neck Exam: Normal inspection. Non-tender. Normal alignment Pulmonary/Respiratory: Chest non-tender. slightly Decreased bilateral breath sounds, no crackles Cardiovascular/Chest: Regular rate and rhythm. No murmurs. No JVD. Peripheral Pulses: 2+ Radial (R). 2+ Radial (L). 2+ Pedal (R). 2+ Pedal (L) Abdominal Exam: Normal bowel sounds. Soft. normal abdomen, no visible veins, Nontender. No hepatospenomegaly. No masses Lower extremities: 1+ lower extremity edema, bilateral calf tenderness to palpation (positive Holile sign) Neuro/Mental Status: A&O x4. Coherent. Thoughts/Psych: Normal thought pattern. Appropriate mood and affect. Good judgement and insight Skin Exam: Normal inspection. Normal color. Warm. Dry Labs/Diagnostic Data Labs Test 02/11/25 07:20 02/10/25 23:00 02/10/25 22:50 Range/Units White Blood Count 9.1 # 4.4-10.8 10^3/uL Red Blood Count 4.71 4.0-5.20 10^6/uL Hemoglobin 14.4 12.2-16.2 g/dL Hematocrit 41.6 36.0-46.0 % Mean Corpuscular Volume 88.2 80.0-100.0 fL Mean Corpuscular Hemoglobin 30.5 28.0-32.0 pg Mean Corpuscular Hemoglobin Concent 34.6 32.0-36.0 g/dL Red Cell Distribution Width 13.7 11.8-14.3 % Platelet Count 192 140-450 10^3/uL Mean Platelet Volume 8.5 6.9-10.8 fL Neutrophils (%) (Auto) 65.8 37.0-80.0 % Lymphocytes (%) (Auto) 22.1 10.0-50.0 % Monocytes (%) (Auto) 8.1 0.0-12.0 % Eosinophils (%) (Auto) 3.2 0.0-7.0 % Basophils (%) (Auto) 0.8 0.0-2.0 % Neutrophils # (Auto) 6.0 1.6-8.6 10 ^3/uL Lymphocytes # (Auto) 2.0 0.4-5.4 10 ^3/uL Monocytes # (Auto) 0.7 0-1.3 10 ^3/uL Eosinophils # (Auto) 0.3 0-0.8 10 ^3/uL Basophils # (Auto) 0.1 0-0.2 10 ^3/uL Nucleated Red Blood Cells 0.2 % Prothrombin Time 10.8 9.3-11.8 sec Prothrombin Time INR 1.02 0.9-1.15 Activated Partial Thromboplast Time 29.6 24.5-34.5 SEC Sodium Level 143 136-145 mmol/L Potassium Level 3.5 3.5-5.1 mmol/L Chloride Level 108 H 98-107 mmol/L Carbon Dioxide Level 25 20-31 mmol/L Anion Gap 10 5-15 Blood Urea Nitrogen 12 9-23 mg/dL Creatinine 0.83 0.550-1.02 mg/dL Glomerular Filtration Rate Calc 77 >90 mL/min BUN/Creatinine Ratio 14.5 10.0-20.0 Serum Glucose 109 H 74-106 mg/dL Calcium Level 9.1 8.7-10.4 mg/dL Total Bilirubin 0.7 0.2-1.0 mg/dL Aspartate Amino Transferase (AST) 207 H <34 U/L Alanine Aminotransferase (ALT) 110 H 7-40 U/L Alkaline Phosphatase 105 46-116 U/L Total Protein 6.8 5.7-8.2 g/dL Albumin 4.2 3.2-4.8 g/dL Urine Color Colorless Yellow Urine Clarity Ex.turbid Clear Urine pH 7.0 5.0-9.0 Urine Specific [place] 1.021 1.001-1.035 Urine Protein Trace H Negative Urine Ketones Negative Negative Urine Blood Trace H Negative /uL Urine Nitrite Negative Negative Urine Bilirubin Negative Negative Urine Urobilinogen Normal Negative mg/dL Urine Leukocyte Esterase Negative Negative /uL Urine RBC 4 0 - 4 /hpf Urine Microscopic WBC 11 H 0-5 /HPF Urine Squamous Epithelial Cells None seen <5 /hpf Urine Amorphous Crystals Few None Seen /hpf Urine Bacteria None seen None Seen /hpf Urine Glucose Normal Normal mg/dL Troponin I High Sensitivity 81 *H </=34 ng/L Assessment Hypertensive emergency NSTEMI type 2 due to above Transaminitis Rule out DVT Plan: - discontinued heparin drip - losartan 50 mg b.i.d. - lower extremity Doppler - manage blood pressure - Rest of the management as per course of hospitalization Thank you so much for the opportunity to consult on your patient. Cardiology team will follow the patient. In case of any questions or concerns please feel free to reach out. Plan discussed with Dr. Sigala Plan discussed with: Patient, Other (RN) Visit Coding Cardiology RES Date of Service: Feb 11, 2025 Billing Provider: BETHANY SIGALA MD Cardiology Common Codes: [id number] INP/OBS CARE (High) GIORGIO MARQUEZ RESIDENT Feb 11, 2025 14:32
[2025-02-11] MEDS: amLODIPine BESYLATE 5 MG TAB PO ONE (16:34)
--- NOTE | 2025-02-11 17:03 | DVH ---
Bilateral lower extremity venous duplex Clinical History: b/l calf tenderness to palpation Comparison: None Technique: Duplex Doppler evaluation of the deep venous systems of both lower extremities from the common femora l veins to the popliteal veins including color Doppler and spectral/pulsed waveform analysis was perf ormed. Findings: RIGHT SIDE: The common femoral vein demonstrates appropriate compressibility and waveform variability. There is compressibility/patency of the great saphenous vein at the proximal thigh. The femoral vein demonstrates appropriate compressibility and waveform variability. The deep femoral vein demonstrates appropriate compressibility and waveform variability. The popliteal vein demonstrates appropriate compressibility and waveform variability. There is normal compressibility at the tibioperoneal trunk. LEFT SIDE: The common femoral vein demonstrates appropriate compressibility and waveform variability. There is compressibility/patency of the great saphenous vein at the proximal thigh. The femoral vein demonstrates appropriate compressibility and waveform variability. The deep femoral vein demonstrates appropriate compressibility and waveform variability. The popliteal vein demonstrates appropriate compressibility and waveform variability. There is normal compressibility at the tibioperoneal trunk. Impression: No right or left femoropopliteal venous thrombosis.
[2025-02-11] MEDS: ONDANSETRON HCL 4 MG/2 ML VIAL IV PRN (18:49)
[2025-02-11 19:36] LABS: INR 1.05 (0.9-1.15); Prothrombin Time 11.1 sec (9.3-11.8)
--- NOTE | 2025-02-11 19:41 | DVHSR ---
APPROVED REPORT EXAM: Two-dimensional and M-mode echocardiogram with Doppler and color Doppler. Blood Pressure: 123/67 mmHg INDICATION LV assessment RISK FACTORS Height: 62, Weight: 235 DIMENSIONS LVDd4.2 (3.8-5.7cm)LA (2D)3.7 (1.9-4.0cm)Aortic Root3.2 (2.0-3.7cm) LVDs3.0 (2.5-4.0cm)LA (MM) (1.9-4.0cm)Aortic Cusp Exc (1.5-2.0cm) EF (%) 55.0 (55-70%)Rt. Atrium4.2 (1.9-4.0cm)Asc. Aorta cm IVSd1.3 (0.7-1.1cm)RV (D) (1.8-2.4cm) PWd1.7 (0.7-1.1cm) Mitral Valve MitralMitral Stenosis E wave0.88m/sMV Mean GR.mmHg A wave0.92m/sMV Peak GR.59mmHg E/A ratio1.02D MVAcm2 DECEL [id number] 1/2 [id number] IVRTmsDop MVA3.77cm2 Aortic Valve Aortic ValveAortic Stenosis V11.28m/Tram Mean GR.7mmHg V21.71m/Tram Peak GR.12mmHg LVOT Diameter1.8 (1.8-2.4cm)Doppler AVA1.90cm2 Pulmonic Valve V21.21m/s Tricuspid Valve TR Velocity2.63m/s [id number] Other Information Technically limited study due to body habitus, patient position and patient kept moving during entir e exam. Patient was non compliant and was not following directions. Conclusion LV EF IS 65% MILD LVH AND MILD LV DIASTOLIC DYSFUNCTION NORMAL VALVES NO EFFUSION SLIGHTLY DILATED RA AND RV NORMAL RV FUNCTION
[2025-02-11 19:45] LABS: Partial Thromboplastin Time 78.2 SEC (24.5-34.5)
[2025-02-11] MEDS: ATORVASTATIN 20 MG TAB PO SCH (22:20)
[2025-02-11] MEDS: LOSARTAN POTASSIUM 50 MG TAB PO SCH (22:22)
--- NOTE | 2025-02-11 22:23 | DVHINCON2 ---
Date Seen: Feb 11, [address] 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 According to the patient, while she was lying down with her travel pillow under her neck, she had an onset of a headache which she localizes to the back of her head, 10/10 in intensity without any exacerbating or relieving factors. Per patient, headache has been continuing off and on for the last 1 week which is what prompted this visit to the hospital. Headache was associated with severe generalized weakness, denies any vision changes. Patient endorses fatigue, chills, shortness of breath on exertion, loss of appetite. Currently patient denies any active ongoing headaches or chest pain or dyspnea. Serial troponins were 78, 74, 81. did not show any ST elevations or depressions. Patient notes uses a walker and a cane at baseline to ambulate. However, patient does note she has had reduced mobility for the last 4 weeks. Chest x-ray showed mild cardiomegaly without CHF or pneumonia. CT head shows large area of encephalomalacia in the right temporoparietal lobe with tissue density consistent with CSF. Bilateral lower extremity venous duplex is negative for DVT. Patient was admitted to the hospital. I am asked to consult on this patient. Family History: Asthma Cerebrovascular accident (CVA) G8 MOTHER Diabetes mellitus G8 MOTHER FH: heart attack Hypertension G8 MOTHER Allergies: Coded Allergies: NO KNOWN ALLERGIES (Unverified , 02/10/25) Current Medications Current Medications Medications (Trade) Dose Ordered Sig/Cristine Route PRN Reason Start Time Stop Time Status Last Admin Aspirin 81 mg DAILY PO 02/12/25 10:00 Heparin Sodium/ Dextrose 250 ml @ 10 mls/hr Q24H IV 02/10/25 21:15 02/11/25 11:34 DC 02/11/25 01:18 Amlodipine Besylate (Norvasc Tablet) 5 mg DAILY PO 02/11/25 10:00 02/11/25 15:11 DC 02/11/25 09:45 Hydralazine HCl (Apresoline Injection) 10 mg Q6HP PRN IV SBP>150 02/10/25 23:00 6/27/25 09:47 Atorvastatin Calcium (Lipitor) 20 mg HS PO 02/11/25 22:00 Azithromycin 250 ml @ 125 mls/hr DAILY IV 02/11/25 10:00 02/11/25 01:04 DC Sodium Chloride (Saline Lock Ns) 10 ml Q8HR IV 02/11/25 06:00 02/11/25 14:00 Acetaminophen/ Hydrocodone Bitart ([place] 5/325MG Tab) 1 tab Q4HP PRN PO MODERATE PAIN (4-6 PAIN SCALE) 02/10/25 23:00 Ondansetron HCl (Zofran) 4 mg Q4HP PRN IV NAUSEA / VOMITING 02/10/25 23:00 Docusate Sodium (Colace Capsule) 100 mg BIDPRN PRN PO FOR CONSTIPATION 02/10/25 23:00 Acetaminophen (Tylenol Tablet) 650 mg Q6HP PRN PO PAIN SCALE 1-3 OR TEMP>100.4 02/10/25 23:00 02/11/25 03:19 Nitroglycerin (Ntrostat Sublingual) 0.4 mg Q5MINP PRN SL FOR CHEST PAIN 02/11/25 00:00 Morphine Sulfate 2 mg Q30M PRN IV FOR CHEST PAIN 02/11/25 00:00 Heparin Sodium/ Dextrose 250 ml @ 13 mls/hr [id number] IV 02/11/25 11:45 02/11/25 11:45 Amlodipine Besylate (Norvasc Tablet) 10 mg DAILY PO 02/12/25 10:00 Review of Systems General: Fatigue, chills Eyes: No Pain, No Vision change, No Conjunctivae inflammation, No Eyelid infl ammation, No Other, No Redness ENT: No Ear pain, No Ear discharge, No Nose pain, No Nose discharge, No Nose congestion, No Mouth pain, No Mouth swelling, No Throat pain, No Throat swelling, No Other Cardiovascular: No Chest Pain, No Palpitations, No Orthopnea, No Paroxysmal No Dyspnea, No Edema, No Lt Headedness, No Other Respiratory: No Cough, No Dry, No Shortness of breath, SOB with exertion, No Wheezing, No Hemoptysis, No Pleuritic Pain, No Sputum, No Other Gastrointestinal: Nausea, No Vomiting, No Abdominal Pain, No Diarrhea, No Constipation, No Melena, No Hematochezia, No Other Genitourinary: No Dysuria, No Frequency, No Incontinence, No Hematuria, No Retention, No Other Musculoskeletal: No other, No neck pain, No shoulder pain, No arm pain, No back pain, No hand pain, No leg pain, No foot pain Skin: No Rash, No Lesions, No Jaundice, No Bruising, No Other Vital Signs Vital Signs Date Time Temp Pulse Resp B/P (MAP) Pulse Ox O2 Delivery O2 Flow Rate FiO2 02/11/25 13:00 98.2 66 18 178/69 (105) 93 98.2 02/11/25 01:42 Room Air* 0 21 Physical Exam GENERAL: Alert and oriented x 3. No acute distress. EYES: PERRL, EOMI. Anicteric. HENT: Moist mucous membranes. LUNGS: Decreased breath sounds. CARDIOVASCULAR: Regular rate and rhythm. ABDOMEN: Soft, nontender and nondistended. EXTREMITIES: 1+ lower extremity edema, bilateral calf tenderness to palpation (positive Hollie sign) NEUROLOGIC: No focal neurological deficits. SKIN: Warm, dry. Labs/Diagnostic Data Labs Test 02/11/25 07:20 02/10/25 23:00 02/10/25 22:50 Range/Units White Blood Count 9.1 # 4.4-10.8 10^3/uL Red Blood Count 4.71 4.0-5.20 10^6/uL Hemoglobin 14.4 12.2-16.2 g/dL Hematocrit 41.6 36.0-46.0 % Mean Corpuscular Volume 88.2 80.0-100.0 fL Mean Corpuscular Hemoglobin 30.5 28.0-32.0 pg Mean Corpuscular Hemoglobin Concent 34.6 32.0-36.0 g/dL Red Cell Distribution Width 13.7 11.8-14.3 % Platelet Count 192 140-450 10^3/uL Mean Platelet Volume 8.5 6.9-10.8 fL Neutrophils (%) (Auto) 65.8 37.0-80.0 % Lymphocytes (%) (Auto) 22.1 10.0-50.0 % Monocytes (%) (Auto) 8.1 0.0-12.0 % Eosinophils (%) (Auto) 3.2 0.0-7.0 % Basophils (%) (Auto) 0.8 0.0-2.0 % Neutrophils # (Auto) 6.0 1.6-8.6 10 ^3/uL Lymphocytes # (Auto) 2.0 0.4-5.4 10 ^3/uL Monocytes # (Auto) 0.7 0-1.3 10 ^3/uL Eosinophils # (Auto) 0.3 0-0.8 10 ^3/uL Basophils # (Auto) 0.1 0-0.2 10 ^3/uL Nucleated Red Blood Cells 0.2 % Prothrombin Time 10.8 9.3-11.8 sec Prothrombin Time INR 1.02 0.9-1.15 Activated Partial Thromboplast Time 29.6 24.5-34.5 SEC Sodium Level 143 136-145 mmol/L Potassium Level 3.5 3.5-5.1 mmol/L Chloride Level 108 H 98-107 mmol/L Carbon Dioxide Level 25 20-31 mmol/L Anion Gap 10 5-15 Blood Urea Nitrogen 12 9-23 mg/dL Creatinine 0.83 0.550-1.02 mg/dL Glomerular Filtration Rate Calc 77 >90 mL/min BUN/Creatinine Ratio 14.5 10.0-20.0 Serum Glucose 109 H 74-106 mg/dL Hemoglobin A1c 5.5 <5.7 % A1C Calcium Level 9.1 8.7-10.4 mg/dL Magnesium Level 2.4 1.6-2.6 mg/dL Total Bilirubin 0.7 0.2-1.0 mg/dL Aspartate Amino Transferase (AST) 207 H <34 U/L Alanine Aminotransferase (ALT) 110 H 7-40 U/L Alkaline Phosphatase 105 46-116 U/L Total Protein 6.8 5.7-8.2 g/dL Albumin 4.2 3.2-4.8 g/dL Thyroid Stimulating Hormone (TSH) 1.75 0.55-4.78 uIU/mL Urine Color Colorless Yellow Urine Clarity Ex.turbid Clear Urine pH 7.0 5.0-9.0 Urine Specific [place] 1.021 1.001-1.035 Urine Protein Trace H Negative Urine Ketones Negative Negative Urine Blood Trace H Negative /uL Urine Nitrite Negative Negative Urine Bilirubin Negative Negative Urine Urobilinogen Normal Negative mg/dL Urine Leukocyte Esterase Negative Negative /uL Urine RBC 4 0 - 4 /hpf Urine Microscopic WBC 11 H 0-5 /HPF Urine Squamous Epithelial Cells None seen <5 /hpf Urine Amorphous Crystals Few None Seen /hpf Urine Bacteria None seen None Seen /hpf Urine Glucose Normal Normal mg/dL Troponin I High Sensitivity 81 *H </=34 ng/L Assessment Hypertensive emergency. NSTEMI type 2 due to above. Transaminitis Rule out DVT. Plan/Recommendation I agree with your ongoing assessment and care of plan. Patient has been seen by Ulysses Sim Resident on my behalf, we have discussed the plan with the patient. Discontinued heparin drip. Losartan 50 mg b.i.d. Lower extremity Doppler. Manage blood pressure. Rest of the management as per course of hospitalization. Additional plan as per the hospital course. Plan discussed with: Patient NYHA Physical activity limitations: NA Date of Service: Feb 11, 2025 Billing Provider: BETHANY SIGALA MD Cardiology Common Codes: [id number] INP/OBS CARE (High) BETHANY SIGALA MD Feb 11, 2025 16:09
[2025-02-11] MEDS: HYDROcodone-ACET 5/325MG TAB PO PRN (22:29)
[2025-02-12] VITALS (14 sets, daily range): BP systolic 134–178; BP diastolic 64–82; PULSE 62–87; RESP 8–18; TEMP 97.6–99; O2SAT 94–99
[2025-02-12 07:45] LABS: COVID19 ANTIGEN SOFIA FIA NEGATIVE (NEGATIVE); Rapid Influenza A Negative (Negative); Rapid Influenza B Negative (Negative)
[2025-02-12] MEDS ORDERED: amLODIPine BESYLATE 5 MG TAB PO SCH (10:00)
--- NOTE | 2025-02-12 10:12 | DVHPN2 ---
Reviewed: Care Plan, H&P, Labs, Medications, Previous Orders, Radiology Changes from previous H/P or p: No Changes Eyes: No Pain, No Vision change, No Conjunctivae inflammation, No Eyelid inflammation, No Other, No Redness ENT: No Ear pain, No Ear discharge, No Nose pain, No Nose discharge, No Nose congestion, No Mouth pain, No Mouth swelling, No Throat pain, No Throat swelling, No Other Cardiovascular: No Chest Pain, No Palpitations, No Orthopnea, No Paroxysmal Noc. Dyspnea, No Edema, No Lt Headedness, No Other Respiratory: No Cough, No Dry; Shortness of breath; No SOB with excertion, No Wheezing, No Hemoptysis, No Pleuritic Pain, No Sputum, No Other Gastrointestinal: No Nausea, No Vomiting, No Abdominal Pain, No Diarrhea, No Constipation, No Melena, No Hematochezia, No Other Genitourinary: No Dysuria, No Frequency, No Incontinence, No Hematuria, No Retention, No Other Musculoskeletal: No other, No neck pain, No shoulder pain, No arm pain, No back pain, No hand pain, No leg pain, No foot pain Skin: No Rash, No Lesions, No Jaundice, No Bruising, No Other Objective Vitals Vital Signs Date Time Temp Pulse Resp B/P (MAP) Pulse Ox O2 Delivery O2 Flow Rate FiO2 02/12/25 09:00 98.0 73 8 141/69 (93) 98 98.0 02/12/25 02:24 30 02/12/25 02:10 Nasal BiPAP Mask 02/11/25 20:00 0 Intake/Output Intake and Output 02/12/25 07:00 Intake Total 1160 ml Balance 1160 ml Intake Oral 1160 ml # Voids 12 Medications Current Medications Medications Dose Ordered Sig/Cristine Route Start Time Stop Time Status Last Admin Dose Admin Aspirin 81 mg DAILY PO 02/12/25 10:00 Hydralazine HCl 10 mg Q6HP PRN IV 02/10/25 23:00 02/12/25 04:06 10 MG Sodium Chloride 10 ml Q8HR IV 02/11/25 06:00 02/12/25 05:45 10 ML Acetaminophen/ Hydrocodone Bitart 1 tab Q4HP PRN PO 02/10/25 23:00 02/11/25 22:29 1 TAB Ondansetron HCl 4 mg Q4HP PRN IV 02/10/25 23:00 02/11/25 18:49 4 MG Docusate Sodium 100 mg BIDPRN PRN PO 02/10/25 23:00 Acetaminophen 650 mg Q6HP PRN PO 02/10/25 23:00 02/11/25 03:19 650 MG Nitroglycerin 0.4 mg Q5MINP PRN SL 02/11/25 00:00 Morphine Sulfate 2 mg Q30M PRN IV 02/11/25 00:00 Amlodipine Besylate 5 mg DAILY PO 02/12/25 10:00 Losartan Potassium 50 mg BID PO 02/11/25 22:00 02/11/25 22:22 50 MG Atorvastatin Calcium 40 mg HS PO 02/12/25 22:00 Laboratory Results Laboratory Tests 02/11/25 07:20 Coagulation Test 02/11/25 18:59 Prothrombin Time 11.1 sec (9.3-11.8) Prothrombin Time INR 1.05 (0.9-1.15) Activated Partial Thromboplast Time 78.2 SEC (24.5-34.5) *H Urinalysis Test 02/10/25 23:00 Urine Color Colorless (Yellow) Urine Clarity Ex.turbid (Clear) Urine pH 7.0 (5.0-9.0) Urine Specific [place] 1.021 (1.001-1.035) Urine Protein Trace (Negative) H Urine Ketones Negative (Negative) Urine Blood Trace /uL (Negative) H Urine Nitrite Negative (Negative) Urine Bilirubin Negative (Negative) Urine Urobilinogen Normal mg/dL (Negative) Urine Leukocyte Esterase Negative /uL (Negative) Urine RBC 4 /hpf (0 - 4) Urine Microscopic WBC 11 /HPF (0-5) H Urine Squamous Epithelial Cells None seen /hpf (<5) Urine Amorphous Crystals Few /hpf (None Seen) Urine Bacteria None seen /hpf (None Seen) Urine Glucose Normal mg/dL (Normal) Labs and/or images reviewed: Labs reviewed by me, Image(s) reviewed by me Assessment/Plan Assessment/Plan Elevated troponin rule out coronary artery disease: Troponin slightly elevated 74 heparin discontinued, treatment per ACS protocol, cardiology consult by Dr. Childs Severe headache status post mechanical fall three weeks ago 01-22-25: CT head without contrast shows right temporal encephalopathy [place] probably old, Neurology consult for Hypertension History of [place] History of stroke DVT ruled out Time spent 55 minutes Patient is full code Plan discussed with: Patient My Orders Orders - SHIRA DENNEY MD Procedure Category Date Status Time * Neurology Consult CONS 02/11/25 Transmitted 13:13 * Cardiology Consult CONS 02/11/25 Transmitted 13:13 Date of Service: Feb 12, 2025 Billing Provider: SHIRA DENNEY MD Common Visit Codes: [id number] INP/OBS CARE(HIGH) SHIRA DENNEY MD Feb 12, 2025 10:12
[2025-02-12] MEDS: amLODIPine BESYLATE 5 MG TAB PO SCH (10:38)
[2025-02-12] MEDS: ASPirin 81 mg TAB PO SCH (10:39)
--- NOTE | 2025-02-12 18:26 | ECG ---
[facility] Test Date: 2025-02-10 Test Time: 17:53:51 Pat Name: ABHISHEK DICKERSON Department: ED Room: 0247T A Gender: F [employer]: storm : 1955 Requested By: TETO MCKEON Order Number: [id number] Reading MD: Sebastian Cornejo Measurements Intervals [place] Rate: 65 P: 0 GA: 0 QRS: 46 QRSD: 90 T: 31 QT: 426 QTc: 443 Interpretive Statements Normal sinus rhythm inferior lateral ST changes suggest ischemia Electronically Signed On 02-12-2025 20:09:46 PDT by Sebastian Cornejo Please click the below link to view image of tracing.
[2025-02-12] MEDS: ATORVASTATIN 20 MG TAB PO SCH (21:36)
--- NOTE | 2025-02-12 23:32 | DVHPN2 ---
Progress Note - Dictate Date Seen: Feb 12, 2025 Medical Necessity Reason Pt with a Central, PICC or Fol: No Subjective Patient was seen and evaluated in follow up. Patient is complaining of generalized pain. Echocardiogram showed an EF of 65%. Telemetry reviewed. vital signs Vital Sign Date Time Temp Pulse Resp B/P (MAP) Pulse Ox O2 Delivery O2 Flow Rate FiO2 02/12/25 16:59 97.6 74 14 149/71 (97) 98 97.6 02/12/25 08:20 Room Air* 0 21 Total Intake and Output 02/11/25 02/11/25 02/12/25 14:59 22:59 06:59 Intake Total 360 ml 800 ml Balance 360 ml 800 ml medications Current Medications Medications Dose Ordered Sig/Cristine Route Start Time Stop Time Status Last Admin Dose Admin Aspirin 81 mg DAILY PO 02/12/25 10:00 02/12/25 10:39 81 MG Hydralazine HCl 10 mg Q6HP PRN IV 02/10/25 23:00 02/12/25 10:38 10 MG Sodium Chloride 10 ml Q8HR IV 02/11/25 06:00 02/12/25 14:18 10 ML Acetaminophen/ Hydrocodone Bitart 1 tab Q4HP PRN PO 02/10/25 23:00 02/11/25 22:29 1 TAB Ondansetron HCl 4 mg Q4HP PRN IV 02/10/25 23:00 02/11/25 18:49 4 MG Docusate Sodium 100 mg BIDPRN PRN PO 02/10/25 23:00 Acetaminophen 650 mg Q6HP PRN PO 02/10/25 23:00 02/11/25 03:19 650 MG Nitroglycerin 0.4 mg Q5MINP PRN SL 02/11/25 00:00 Morphine Sulfate 2 mg Q30M PRN IV 02/11/25 00:00 Amlodipine Besylate 5 mg DAILY PO 02/12/25 10:00 02/12/25 10:38 5 MG Losartan Potassium 50 mg BID PO 02/11/25 22:00 02/12/25 10:39 50 MG Atorvastatin Calcium 40 mg HS PO 02/12/25 22:00 objective GENERAL: Alert and oriented x 3. No acute distress. EYES: PERRL, EOMI. Anicteric. HENT: Moist mucous membranes. LUNGS: Decreased breath sounds. CARDIOVASCULAR: Regular rate and rhythm. ABDOMEN: Soft, nontender and nondistended. EXTREMITIES: 1+ lower extremity edema, bilateral calf tenderness to palpation (positive Hollie sign) NEUROLOGIC: No focal neurological deficits. SKIN: Warm, dry. laboratory and microbiology Laboratory Tests 02/11/25 07:20 Test 02/11/25 07:20 Range/Units Serum Glucose 109 H 74-106 mg/dL Problem List Hypertensive emergency. NSTEMI type 2 due to above. Transaminitis Rule out DVT. Assessment/Plan Continued all current supportive medical care. Morphine and [place] for pain management. Amlodipine, Losartan. Aspirin, Lipitor. IV Hydralazine for SBP > 150. Nitro SL. Additional plan as per the hospital course. Plan discussed with: Patient BETHANY SIGALA MD Feb 12, 2025 20:13
[2025-02-13] VITALS (8 sets, daily range): BP systolic 121–155; BP diastolic 48–78; PULSE 61–71; RESP 17–18; TEMP 97.4–98.3; O2SAT 95–99
--- NOTE | 2025-02-13 09:57 | DVHPN2 ---
Reviewed: Care Plan, H&P, Labs, Medications, Previous Orders, Radiology Changes from previous H/P or p: No Changes Eyes: No Pain, No Vision change, No Conjunctivae inflammation, No Eyelid inflammation, No Other, No Redness ENT: No Ear pain, No Ear discharge, No Nose pain, No Nose discharge, No Nose congestion, No Mouth pain, No Mouth swelling, No Throat pain, No Throat swelling, No Other Cardiovascular: No Chest Pain, No Palpitations, No Orthopnea, No Paroxysmal Noc. Dyspnea, No Edema, No Lt Headedness, No Other Respiratory: No Cough, No Dry; Shortness of breath; No SOB with excertion, No Wheezing, No Hemoptysis, No Pleuritic Pain, No Sputum, No Other Gastrointestinal: No Nausea, No Vomiting, No Abdominal Pain, No Diarrhea, No Constipation, No Melena, No Hematochezia, No Other Genitourinary: No Dysuria, No Frequency, No Incontinence, No Hematuria, No Retention, No Other Musculoskeletal: No other, No neck pain, No shoulder pain, No arm pain, No back pain, No hand pain, No leg pain, No foot pain Skin: No Rash, No Lesions, No Jaundice, No Bruising, No Other Objective Vitals Vital Signs Date Time Temp Pulse Resp B/P (MAP) Pulse Ox O2 Delivery O2 Flow Rate FiO2 02/13/25 09:33 121/78 02/13/25 09:00 97.4 71 18 97 97.4 02/13/25 06:25 Room Air 02/13/25 06:22 0 21 Intake/Output Intake and Output 02/13/25 07:00 Intake Total 1400 ml Balance 1400 ml Intake Oral 1400 ml # Voids 8 Medications Current Medications Medications Dose Ordered Sig/Cristine Route Start Time Stop Time Status Last Admin Dose Admin Aspirin 81 mg DAILY PO 02/12/25 10:00 02/13/25 09:32 81 MG Hydralazine HCl 10 mg Q6HP PRN IV 02/10/25 23:00 02/13/25 04:58 10 MG Sodium Chloride 10 ml Q8HR IV 02/11/25 06:00 02/13/25 05:33 10 ML Acetaminophen/ Hydrocodone Bitart 1 tab Q4HP PRN PO 02/10/25 23:00 02/12/25 20:26 1 TAB Ondansetron HCl 4 mg Q4HP PRN IV 02/10/25 23:00 02/11/25 18:49 4 MG Docusate Sodium 100 mg BIDPRN PRN PO 02/10/25 23:00 Acetaminophen 650 mg Q6HP PRN PO 02/10/25 23:00 02/11/25 03:19 650 MG Nitroglycerin 0.4 mg Q5MINP PRN SL 02/11/25 00:00 Morphine Sulfate 2 mg Q30M PRN IV 02/11/25 00:00 Amlodipine Besylate 5 mg DAILY PO 02/12/25 10:00 02/13/25 09:33 5 MG Losartan Potassium 50 mg BID PO 02/11/25 22:00 02/13/25 09:32 50 MG Atorvastatin Calcium 40 mg HS PO 02/12/25 22:00 02/12/25 21:36 40 MG Laboratory Results Laboratory Tests 02/11/25 07:20 Urinalysis Test 02/10/25 23:00 Urine Color Colorless (Yellow) Urine Clarity Ex.turbid (Clear) Urine pH 7.0 (5.0-9.0) Urine Specific [place] 1.021 (1.001-1.035) Urine Protein Trace (Negative) H Urine Ketones Negative (Negative) Urine Blood Trace /uL (Negative) H Urine Nitrite Negative (Negative) Urine Bilirubin Negative (Negative) Urine Urobilinogen Normal mg/dL (Negative) Urine Leukocyte Esterase Negative /uL (Negative) Urine RBC 4 /hpf (0 - 4) Urine Microscopic WBC 11 /HPF (0-5) H Urine Squamous Epithelial Cells None seen /hpf (<5) Urine Amorphous Crystals Few /hpf (None Seen) Urine Bacteria None seen /hpf (None Seen) Urine Glucose Normal mg/dL (Normal) Labs and/or images reviewed: Labs reviewed by me, Image(s) reviewed by me Assessment/Plan Assessment/Plan Elevated troponin rule out coronary artery disease: Troponin slightly elevated 74 heparin discontinued, treatment per ACS protocol, cardiology consult by Dr. Childs Severe headache status post mechanical fall three weeks ago 01-22-25: CT head without contrast shows right temporal encephalopathy [place] probably old, Neurology consult for Hypertension History of [place] History of stroke DVT ruled out Time spent 55 minutes Patient is full code Plan discussed with: Patient Date of Service: Feb 13, 2025 Billing Provider: SHIRA DENNEY MD Common Visit Codes: [id number] INP/OBS CARE(HIGH) SHIRA DENNEY MD Feb 13, 2025 09:57
[2025-02-13] MEDS ORDERED: ASPI1TAB19 PO (09:59)
[2025-02-13] MEDS ORDERED: LOSA-533 PO (09:59)
[2025-02-13] MEDS ORDERED: AMLO1TAB23 PO (09:59)
[2025-02-13] MEDS ORDERED: ATOR-507 PO (09:59)
--- NOTE | 2025-02-13 10:02 | DVHDS2 ---
Discharge Summary Date of Admission Feb 10, 2025 at 23:46 Date of Discharge: Feb 13, 2025 Admitting Diagnosis Chest pain Wounds: None Labs/Diagnostic Data: Laboratory Results Test 02/12/25 05:30 02/11/25 20:50 02/11/25 18:59 02/11/25 07:20 Influenza Type A Antigen Negative (Negative) Influenza Type B Antigen Negative (Negative) SARS-CoV-2 Antigen (Rapid) Negative (NEGATIVE) Troponin I High Sensitivity 87 ng/L (</=34) Prothrombin Time 11.1 sec (9.3-11.8) Prothrombin Time INR 1.05 (0.9-1.15) Activated Partial Thromboplast Time 78.2 SEC (24.5-34.5) White Blood Count 9.1 10^3/uL (4.4-10.8) Red Blood Count 4.71 10^6/uL (4.0-5.20) Hemoglobin 14.4 g/dL (12.2-16.2) Hematocrit 41.6 % (36.0-46.0) Mean Corpuscular Volume 88.2 fL (80.0-100.0) Mean Corpuscular Hemoglobin 30.5 pg (28.0-32.0) Mean Corpuscular Hemoglobin Concent 34.6 g/dL (32.0-36.0) Red Cell Distribution Width 13.7 % (11.8-14.3) Platelet Count 192 10^3/uL (140-450) Mean Platelet Volume 8.5 fL (6.9-10.8) Neutrophils (%) (Auto) 65.8 % (37.0-80.0) Lymphocytes (%) (Auto) 22.1 % (10.0-50.0) Monocytes (%) (Auto) 8.1 % (0.0-12.0) Eosinophils (%) (Auto) 3.2 % (0.0-7.0) Basophils (%) (Auto) 0.8 % (0.0-2.0) Neutrophils # (Auto) 6.0 10 ^3/uL (1.6-8.6) Lymphocytes # (Auto) 2.0 10 ^3/uL (0.4-5.4) Monocytes # (Auto) 0.7 10 ^3/uL (0-1.3) Eosinophils # (Auto) 0.3 10 ^3/uL (0-0.8) Basophils # (Auto) 0.1 10 ^3/uL (0-0.2) Nucleated Red Blood Cells 0.2 % Sodium Level 143 mmol/L (136-145) Potassium Level 3.5 mmol/L (3.5-5.1) Chloride Level 108 mmol/L (98-107) Carbon Dioxide Level 25 mmol/L (20-31) Anion Gap 10 (5-15) Blood Urea Nitrogen 12 mg/dL (9-23) Creatinine 0.83 mg/dL (0.550-1.02) Glomerular Filtration Rate Calc 77 mL/min (>90) BUN/Creatinine Ratio 14.5 (10.0-20.0) Serum Glucose 109 mg/dL (74-106) Hemoglobin A1c 5.5 % A1C (<5.7) Calcium Level 9.1 mg/dL (8.7-10.4) Magnesium Level 2.4 mg/dL (1.6-2.6) Total Bilirubin 0.7 mg/dL (0.2-1.0) Aspartate Amino Transferase (AST) 207 U/L (<34) Alanine Aminotransferase (ALT) 110 U/L (7-40) Alkaline Phosphatase 105 U/L (46-116) B-Type Natriuretic Peptide 12.30 pg/mL (0-100) Total Protein 6.8 g/dL (5.7-8.2) Albumin 4.2 g/dL (3.2-4.8) Thyroid Stimulating Hormone (TSH) 1.75 uIU/mL (0.55-4.78) Test 02/10/25 23:00 Urine Color Colorless (Yellow) Urine Clarity Ex.turbid (Clear) Urine pH 7.0 (5.0-9.0) Urine Specific [place] 1.021 (1.001-1.035) Urine Protein Trace (Negative) Urine Ketones Negative (Negative) Urine Blood Trace /uL (Negative) Urine Nitrite Negative (Negative) Urine Bilirubin Negative (Negative) Urine Urobilinogen Normal mg/dL (Negative) Urine Leukocyte Esterase Negative /uL (Negative) Urine RBC 4 /hpf (0 - 4) Urine Microscopic WBC 11 /HPF (0-5) Urine Squamous Epithelial Cells None seen /hpf (<5) Urine Amorphous Crystals Few /hpf (None Seen) Urine Bacteria None seen /hpf (None Seen) Urine Glucose Normal mg/dL (Normal) Other Laboratory Tests 02/11/25 07:20 Brief Hx & Hospital Course: 69-year-old female with a history of hypertension stroke [place] came in for headache and chest pain troponin slightly elevated 74 started on heparin discontinued later seen by Cardiology Dr. Childs advised aspirin lisinopril Lipitor and amlodipine patient has had a mechanical fall three weeks ago CT head without contrast showed right temporal encephalomalacia probably old patient feels better. Being discharged home on cardiac medications Consults/Reason for consult Cardiology Dr. Childs Operations or Procedures None Condition at Discharge: Fair Final Diagnosis/Problems List Elevated troponin rule out coronary artery disease: Troponin slightly elevated 74 heparin discontinued, treatment per ACS protocol, cardiology consult by Dr. Childs Severe headache status post mechanical fall three weeks ago 01-22-25: CT head without contrast shows right temporal encephalopathy [place] probably old, Neurology consult for Hypertension History of [place] History of stroke DVT ruled out Discharge Disposition: Home Discharge Instruct/Medications Diet: Cardiac 2g Na,low cholest Activity: Light activity Follow Up/Referral: Follow up with the primary Dr Murray all previous home medications Use new medications as prescribed Medications: Aspirin Losartan Amlodipine Lipitor Transmitted to [facility] 36 (Time taken for discharge summary 36 minutes) Discharge Statement: "Patient was advised to return to the ER or call 911 if any headaches, dizziness, shortness of breath, chest pain, abdominal pain, bleeding, fevers, or worsening of medical condition. Patient was counseled about treatment plan, medications, possible side effects, patientverbalized understanding. All questions were answered to the best of my ability. This discharge took greater then 30 minutes in planning, reviewing documentation, counseling the patient, and discussing with other team members." ASSESSMENT ASSESSMENT Hospital Course Improved Assessment Elevated troponin rule out coronary artery disease: Troponin slightly elevated 74 heparin discontinued, treatment per ACS protocol, cardiology consult by Dr. Childs Severe headache status post mechanical fall three weeks ago 01-22-25: CT head without contrast shows right temporal encephalopathy [place] probably old, Neurology consult for Hypertension History of [place] History of stroke DVT ruled out Date of Service: Feb 13, 2025 Billing Provider: SHIRA DENNEY MD Common Visit Codes: [id number] DISCH DAY >30min SHIRA DENNEY MD Feb 13, 2025 10:02
--- NOTE | 2025-02-13 22:39 | DVHPN2 ---
Progress Note - Dictate Date Seen: Feb 13, 2025 Medical Necessity Reason Pt with a Central, PICC or Fol: No Subjective Patient was seen and evaluated in follow up. Patient has no new complaints at this time. Patient denies any cardiac symptoms. Patient is cardiac stable for discharge. Telemetry reviewed. vital signs Vital Sign Date Time Temp Pulse Resp B/P (MAP) Pulse Ox O2 Delivery O2 Flow Rate FiO2 02/13/25 09:33 121/78 02/13/25 09:00 97.4 71 18 97 97.4 02/13/25 08:20 Room Air* 0 21 Total Intake and Output 02/12/25 02/12/25 02/13/25 15:00 23:00 07:00 Intake Total 600 ml 800 ml Balance 600 ml 800 ml objective GENERAL: Alert and oriented x 3. No acute distress. EYES: PERRL, EOMI. Anicteric. HENT: Moist mucous membranes. LUNGS: Decreased breath sounds. CARDIOVASCULAR: Regular rate and rhythm. ABDOMEN: Soft, nontender and nondistended. EXTREMITIES: 1+ lower extremity edema, bilateral calf tenderness to palpation (positive Hollie sign) NEUROLOGIC: No focal neurological deficits. SKIN: Warm, dry. laboratory and microbiology Laboratory Tests 02/11/25 07:20 Test 02/11/25 07:20 Range/Units Serum Glucose 109 H 74-106 mg/dL Problem List Hypertensive emergency. NSTEMI type 2 due to above. Transaminitis Rule out DVT. Assessment/Plan Continued all current supportive medical care. Morphine and [place] for pain management. Amlodipine, Losartan. Aspirin, Lipitor. IV Hydralazine for SBP > 150. Nitro SL. Additional plan as per the hospital course. Plan discussed with: Patient BETHANY SIGALA MD Feb 13, 2025 16:33
== END 2025-02-13 12:15 | disposition home or self-care (01) | DRG 281 ==
LOC: EDBD 17:43 → ER 17:53 → OVERFLOW 23:46 → TELE-EAST 02-11 02:00
PROVIDERS: ADMIT Family Medicine; ATTEND Family Medicine
PROC: 5A09357 Assistance with Respiratory Ventilation, Less than 24 Consecutive Hours, Continuous Positive Airway Pressure (ICD-10-PCS; principal; 2025-02-11)
PROC: 5A09357 Assistance with Respiratory Ventilation, Less than 24 Consecutive Hours, Continuous Positive Airway Pressure (ICD-10-PCS; 2025-02-12)
PROC: 5A09357 Assistance with Respiratory Ventilation, Less than 24 Consecutive Hours, Continuous Positive Airway Pressure (ICD-10-PCS; 2025-02-13)
DX: I16.0 Hypertensive urgency (principal); G93.40 Encephalopathy, unspecified; I21.A1 Myocardial infarction type 2; I69.354 Hemiplegia and hemiparesis following cerebral infarction affecting left non-dominant side; I25.10 Atherosclerotic heart disease of native coronary artery without angina pectoris; Z20.822 Contact with and (suspected) exposure to COVID-19; R74.01 Elevation of levels of liver transaminase levels; G93.89 Other specified disorders of brain; Z90.710 Acquired absence of both cervix and uterus; Z82.49 Family history of ischemic heart disease and other diseases of the circulatory system; Z83.3 Family history of diabetes mellitus; Z82.5 Family history of asthma and other chronic lower respiratory diseases; Z82.3 Family history of stroke; Z90.49 Acquired absence of other specified parts of digestive tract; Z98.891 History of uterine scar from previous surgery
CPT/HCPCS: 36415; 70450; 71046; 80048; 80053; 81001; 83036; 83735; 83880; 84443; 84484; 85025; 85610; 85730; 87426; 87804; 93005; 93306; 93970; 94660; 99291; G0378; J2405

== ENCOUNTER 2025-06-03 12:52 | Inpatient (IN) | payer MEDICARE, MEDICAID ==
[~2025-06-03] VITALS: Ht 157.5 cm; Wt 109.0 kg
[~2025-06-03 12:52] MED LIST: AMLO1TAB23 PO; ASPI1TAB19 PO; ATOR-507 PO; CHOL500013 PO; CLOP75TA70 PO; HYDR50TA47 PO; LIDO2.5C3 EX; LORA-1123 PO; LOSA-533 PO; LOSA-535 PO; MELO15TA29 PO; NIFE90TA75 PO; TIZA1TAB20 PO; VIBE75TA PO
[2025-06-03] MEDS ORDERED: cloNIDine 0.2 mg/24hr 7DAY PATCH TD ONE (13:30)
--- NOTE | 2025-06-03 13:32 | ED.PDOC ---
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 The patient came to the ED with chief complain of 1 week of elevate blood pressure home readings, >200/100 in average, associated with frontal throbbing headache, heart palpitation and dizziness. On further questioning the patient reports her BP medications were change by PCP one week ago; she used to take benazepril and Nifedipine for BP (does not recall the dosage), this medication were changed to losartan 100mg qd and amlodipine 10mg po qd. Since the medication changed her BP has increased. Today, her systolic BP was >200 and she start presenting worsen of headache, blurry vision and eyes tearing, this prompted her visit to the ED. The patient denies new neurologic deficit, weakness, numbness or tingling sensation or worsen of previous neurologic deficit. In the ED BP: 211/67mmHg, HR: 63bpm, troponins 143 and 144. The patient will be admitted for further assessment and management. Chief Complaint: High Blood Pressure Time Seen by MD: 13:07 Primary Care Provider: unknown Reviewed Notes: Nurses Notes, Medications, Allergies Allergies: Coded Allergies: NO KNOWN ALLERGIES (Unverified , 02/10/25) Home Meds Active Scripts Atorvastatin Calcium (Lipitor) 40 Mg Tab, 1 TAB PO QPM, #90 TAB 1 Refill Prov:SHIRA DENNEY MD 02/13/25 Aspirin (Aspirin) 81 Mg Tab, 81 MG PO DAILY, #90 TAB Prov:SHIRA DENNEY MD 02/13/25 Losartan Potassium (Losartan Potassium) 25 Mg Tab, 25 MG PO BID, #90 TAB Prov:SHIRA DENNEY MD 02/13/25 Amlodipine Besylate (Amlodipine Besylate) 10 Mg Tab, 1 TAB PO DAILY, #90 TAB 1 Refill Prov:SHIRA DENNEY MD 02/13/25 Information Source: Patient Mode of Arrival: Ambulatory Severity: Moderate, Severe Timing: Weeks Duration: Since onset Associated Signs and Symptoms: Palpitations Past Medical History PAST MEDICAL HISTORY: CVA (2007), HTN, ME Past Medical History (Other): Pre-diabetes Surgical History: Hysterectomy BR[employer]LET [employer]ER History: No Pertinent BR[employer]LET [employer] BR[employer]CH [employer]ER History Family History Family History: No family hx of Cancer, No family hx of DM, No family hx of Heart jami Social History Smoker: Non-Smoker Alcohol: Denies ETOH Use Drugs: Denies Drug Use Lives In: Home Constitutional: denies: chills, diaphoresis, fatigue, fever, malaise, sweats, weakness, others EENTM: reports: blurred vision, hearing loss (on the left ear (old) ), tearing, others (Headache); denies: double vision, ear bleeding, ear discharge, ear drainage, ear pain, ear ringing, eye pain, eye redness, mouth pain, mouth swelling, nasal discharge, nose bleeding, nose congestion, nose pain, photophobia, throat pain, throat swelling, voice changes Respiratory: denies: cough, hemoptysis, orthopnea, SOB at rest, shortness of breath, SOB with excertion, stridor, wheezing, others Cardiovascular: reports: palpitations; denies: chest pain, dizzy spells, diaphoresis, Dyspnea on exertion, edema, irregular heart beat, left arm pain, lightheadedness, PND, syncope, others Gastrointestinal: denies: abdomen distended, abdominal pain, blood streaked bowels, constipated, diarrhea, dysphagia, difficulty swallowing, hematemesis, melena, nausea, poor appetite, poor fluid intake, rectal bleeding, rectal pain, vomiting, others Genitourinary: denies: abnormal vagina bleeding, burning, dyspareunia, dysuria, flank pain, frequency, hematuria, incontinence, pain, , vagina discharge, urgency, others Neurological: denies: dizziness, fainting, headache, left sided numbness, left sided weakness, numbness, paresthesia, pre-existing deficit, right sided numbness, right sided weakness, seizure, speech problems, tingling, tremors, weakness, others Musculoskeletal: denies: back pain, gout, joint pain, joint swelling, muscle pain, muscle stiffness, neck pain, others Integumetry: denies: bruises, change in color, change in hair/nails, dryness, laceration, lesions, lumps, rash, wounds, others Allergic/Immunocompromised: denies: Difficulty Healing, Frequent Infections, Hives, Itching, others Hematologic/Lymphatic: denies: anemia, blood clots, easy bleeding, easy bruising, swollen glands, others Endocrine: denies: excessive hunger, excessive sweating, excessive thirst, excessive urination, flushing, intolerance to cold, intolerance to heat, unexplained weight gain, unexplained weight loss, others Psychiatric: denies: anxiety, bipolar disorder, depression, hopeless, panic disorder, schizophrenia, sleepless, suicidal, others Physical Exam Exam Comments Alert, Oriented x3. General Appearance: Mild Distress HEENT: Other (eyes are tearfull and mild conjuntival injection. ) Neck: Full Range of Motion, Non-Tender, Normal, Normal Inspection Respiratory: Chest Non-Tender, Lungs Clear, No Accessory Muscle Use, No Re spiratory Distress, Normal Breath Sounds Cardiovascular: Bradycardia (59), No Murmur, Normal Peripheral Pulses, Regular Rate/Rhythm Breast Exam: Deferred Gastrointestinal: No Organomegaly, Non Tender, Normal Bowel Sounds, Soft Genitalia: Deferred Pelvic: Deferred Rectal: Deferred Extremities: Normal capillary refill, Normal range of motion, Swelling (bilat eral pitting edema. ) Musculoskeletal : Apperance: Normal Neurologic: Alert, brattice builder II-XII nml as Tested, No Motor Deficits, Normal Affect, Normal Mood, No Sensory Deficits, Other (hearing disminuish on the left. Neurological deficit on left arm and leg with disminuish strengh and movement, but preserved sensation. Facial: no abdnormalities. The patient useas walker at home. In the ED she is on wheelchair due to dizziness. ) Cerebellar Function: Normal Reflexes: Normal Skin: Dry, Normal Color, Warm Lymphatic: No Adenopathy Was a procedure done? Was a procedure done?: No CP Differential Dx Differential Diagnosis: ME Differential Diagnosis: HTN Accelerated, HTN Encephalopathy, Other (Hypertensive emergency) Differential Diagnosis: Other (NSTEMI Type 2 ) X-Ray, Labs, Meds, VS Vital Signs Date Time Temp Pulse Resp B/P (MAP) Pulse Ox O2 Delivery O2 Flow Rate FiO2 06/03/25 15:03 52 16 201/71 (114) 98 06/03/25 13:08 59 06/03/25 12:54 98.1 63 18 211/64 96 98.1 Lab Test 06/03/25 17:17 06/03/25 14:53 06/03/25 13:44 Range/Units Troponin I High Sensitivity 135 *H 144 *H 143 *H </=34 ng/L White Blood Count 4.8 4.4-10.8 10^3/uL Red Blood Count 4.55 4.0-5.20 10^6/uL Hemoglobin 14.2 12.2-16.2 g/dL Hematocrit 40.8 36.0-46.0 % Mean Corpuscular Volume 89.6 80.0-100.0 fL Mean Corpuscular Hemoglobin 31.1 28.0-32.0 pg Mean Corpuscular Hemoglobin Concent 34.8 32.0-36.0 g/dL Red Cell Distribution Width 14.1 11.8-14.3 % Platelet Count 170 140-450 10^3/uL Mean Platelet Volume 8.4 6.9-10.8 fL Neutrophils (%) (Auto) 62.9 37.0-80.0 % Lymphocytes (%) (Auto) 22.2 10.0-50.0 % Monocytes (%) (Auto) 10.4 0.0-12.0 % Eosinophils (%) (Auto) 3.7 0.0-7.0 % Basophils (%) (Auto) 0.8 0.0-2.0 % Neutrophils # (Auto) 3.0 1.6-8.6 10 ^3/uL Lymphocytes # (Auto) 1.1 0.4-5.4 10 ^3/uL Monocytes # (Auto) 0.5 0-1.3 10 ^3/uL Eosinophils # (Auto) 0.2 0-0.8 10 ^3/uL Basophils # (Auto) 0 0-0.2 10 ^3/uL Nucleated Red Blood Cells 0.1 % Sodium Level 144 136-145 mmol/L Potassium Level 3.6 3.5-5.1 mmol/L Chloride Level 106 98-107 mmol/L Carbon Dioxide Level 29 20-31 mmol/L Anion Gap 9 5-15 Blood Urea Nitrogen 15 9-23 mg/dL Creatinine 1.01 0.550-1.02 mg/dL Glomerular Filtration Rate Calc 60 >90 mL/min BUN/Creatinine Ratio 14.9 10.0-20.0 Serum Glucose 109 H 74-106 mg/dL Calcium Level 8.7 8.7-10.4 mg/dL X-Ray, Labs, Meds, VS Comment 13:44 The patient was re-evaluated BP: 211/64mmHg, 63bpm CBC: Unremarkable CMP: Glucose: 109 rest unremarkable troponin: 143 Side note: At 1303: Clonidine was ordered after PHI and PE. HR was 52bpm. Clonidine was not administrated, Hydralazin 10mg IV was administrated instead. Cardio consult will be placed. The patient will be admitted for further assessment and management 14:53 The patient was re-evaluated. The patient reports no improvement of headache after BP medication CT head will be ordered. troponin: 144 15:[address] head non contrast: results still pending. Patient is still waiting to be admitted. Time of 1ST Reevaluation: 13:44 Reevaluation 1ST: Unchanged Time of 2ND Reevaluation: 14:53 Reevaluation 2ND: Unchanged Time of 3RD Reevaluation: 15:53 Reevaluation 3RD: Unchanged Patient Education/Counseling: Diagnosis, Treatment, Prognosis, Need For Follow Up Family Education/Counseling: Diagnosis, Treatment, Prognosis, Need For Follow Up SEPSIS Sepsis Screen Date sepsis recognized/suspect: Jun 03, 2025 Time Sepsis recognized/suspect: 1259 Recent Procedure: No On Antibiotic Therapy: No Respiratory Rate >20: No Heart Rate >90: No Temp<36 C (96.8 F) or >38.3 C: No SBP <90 or MAP <65 mmHG: No New Acute Mental Status Change: No Is the patient on CPAP, BIPAP,: No Physician Orders Electrocardigram (06/03/25 13:14) Electrocardigram (06/03/25 13:30) Electrocardigram (06/03/25 14:30) Electrocardigram (06/03/25 16:30) Chest Portable (06/03/25 13:30) * Cardiology Consult (06/03/25 14:35) Angio Head/Neck (06/03/25 15:40) Nicardipine 20 Mg/200 Ml (Cardene Iv) (06/03/25 18:30) Aspirin Tablet (06/03/25 18:30) Echo 2d Mode Cardiac Dop (06/03/25 18:17) Vital Signs Date Time Temp Pulse Resp B/P (MAP) Pulse Ox O2 Delivery O2 Flow Rate FiO2 06/03/25 15:03 52 16 201/71 (114) 98 06/03/25 13:08 59 06/03/25 12:54 98.1 63 18 211/64 96 98.1 Laboratory Tests Test 06/03/25 13:44 White Blood Count 4.8 10^3/uL (4.4-10.8) Departure 1 Departure Time of Disposition: 13:44 Impression: Primary Impression: Type 1 non-ST elevation myocardial infarction (NSTEMI) Additional Impressions: Hypertensive urgency 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 Discussed plan of care with Dr. Vital Code status: Full code PCP: Dr. Camacho Plan discussed with: Patient and son, the patient agrees with the admission plan. Critical Care Note Critical Care Time?: No Stability Stability form required: No Heart Score Heart Score: Heart Score Response (Comments) Value History Highly Suspicious 2 EKG Repolarization Disturb 1 Age >65 2 Risk Factors >3 or Hx ASHD 2 Troponin >3 x's Normal limit 2 Total 9 PREET FIELDS RESIDENT Jun 03, 2025 13:32
[2025-06-03 14:09] LABS: Hematocrit 40.8 % (36.0-46.0); Hemoglobin 14.2 g/dL (12.2-16.2); Mean Corpuscular Hemoglobin 31.1 pg (28.0-32.0); Mean Corpuscular Volume 89.6 fL (80.0-100.0); Nucleated Red Blood Cells % 0.1 %
[2025-06-03 14:15] LABS: Chloride 106 mmol/L (98-107); Potassium 3.6 mmol/L (3.5-5.1); Sodium 144 mmol/L (136-145)
[2025-06-03 14:16] LABS: Anion Gap 9 (5-15); Carbon Dioxide 29 mmol/L (20-31)
[2025-06-03 14:17] LABS: Calcium 8.7 mg/dL (8.7-10.4)
[2025-06-03 14:21] LABS: BUN/Creatinine Ratio 14.9 (10.0-20.0); Blood Urea Nitrogen 15 mg/dL (9-23); Glucose 109 mg/dL (74-106)
--- NOTE | 2025-06-03 14:28 | DVH ---
EXAM: XY CHEST PORTABLE HISTORY: Palpitation/ Hypertensive COMPARISON: Chest x-ray dated 02/10/2025 TECHNIQUE: Portable upright AP view of the chest was performed. FINDINGS: No pneumothorax, consolidative infiltrates, or pulmonary edema. The heart is enlarged. There is abun dant overlying adipose tissue. IMPRESSION: Cardiomegaly and obesity. No acute intrathoracic process is identified here.
[2025-06-03] MEDS ORDERED: hydrALAZINE HCL 20 MG/ML VL IV ONE (17:30)
--- NOTE | 2025-06-03 17:59 | DVH ---
EXAM: CT ANGIO HEAD/NECK DATE OF SERVICE: 06/03/2025 04:49 PM ORDERING PHYSICIAN: PREET FIELDS RESIDENT REASON FOR EXAM: Hypertensive emergency and headache/HX CVA TECHNIQUE: CT of the head without contrast. CTA of the brain and neck was performed after the admini stration of contrast . Axial images of the head and neck are obtained. Coronal and sagittal images we re then reformatted for review. MIP reformats were obtained and reviewed. COMPARISON: None FINDINGS: FINDINGS: No intracranial hemorrhage. No extra-axial fluid, mass, mass effect or midline shift. Ventr icles are midline and normal in size. Right frontal, parietal and temporal encephalomalacia. Cisterns are patent. Paranasal sinuses are well pneumatized. Mastoids well pneumatized. Orbits, retrobulbar spaces unremarkable. The right common carotid artery demonstrates no high-grade stenosis. [id number] calcification r ight carotid bulb. Right internal carotid artery demonstrates no high-grade stenosis. Right middle cerebral artery M1 segment is diminutive in caliber which is likely related to the under lying old large right MCA distribution infarction. The M2 and M3 segments are severely diminutive. The right anterior cerebral artery demonstrates no high-grade stenosis. The left common carotid artery demonstrates no high-grade stenosis. Mild calcification left carotid b ulb. Left internal carotid artery demonstrates no high-grade stenosis. The left middle cerebral artery demonstrates no high-grade stenosis. The left anterior cerebral artery demonstrates no high-grade stenosis. The right vertebral artery demonstrates no high-grade stenosis. The left vertebral artery extremely small in caliber. 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 The bilateral posterior cerebral arteries are small in caliber especially the right posterior cerebra l artery. Heterogeneous thyroid gland with multiple nodules. Moderate to advanced cervical degenerative disc disease with prominent posterior osteophytosis/ossifi cation posterior longitudinal ligament IMPRESSION: No intracranial hemorrhage. Old large right MCA distribution infarction. The right MCA vasculature is severely diminutive which i s likely secondary to the large right old MCA distribution infarction. 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 Small caliber basilar artery. Fe nannette origin of the bilateral posterior cerebral arteries which overall are extremely small in caliber/ diminutive. Recommend obtaining MRI brain to exclude any under acute infarction. Heterogeneous thyroid gland with multiple nodules which can be further evaluated with thyroid ultraso und in the nonemergent setting.
[2025-06-03 20:15] VITALS: PULSE 54; RESP 14; O2SAT 96
[2025-06-03] MEDS: IOHEXOL 350 MG/ML 100ML IJ ONE (20:15)
[2025-06-03] MEDS: hydrALAZINE HCL 20 MG/ML VL IV ONE (20:27)
[2025-06-03] MEDS: ACETAMINOPHEN 325 MG TAB PO ONE (20:41)
[2025-06-03] MEDS ORDERED: DOCUSATE SOD 100 MG CAP PO PRN (21:15)
[2025-06-03] MEDS: HYDROcodone-ACET 5/325MG TAB PO PRN (21:49)
--- NOTE | 2025-06-03 21:54 | DVHHP2 ---
History of Present Illness Reason for Visit: Hypertensive urgency History of Present Illness The patient is a 70-year-old female with past medical history of CVA, DE, prediabetes, and hypertension who presented to [facility] ED with complaint of elevated blood pressure. Patient reports she has been experiencing elevated blood pressure at home rating greater than 200/100 in average, associated with headache, heart palpitations, and dizziness. Patient states her blood pressure medication was changed by her PCP about 1 week ago with relief and has resulted in increased blood pressure. This medication were changed to losartan 100mg every day and amlodipine 10mg by mouth daily everyday. Patient was seen and evaluated in the ED, laboratory data shows WBC 4.8, platelets 170, sodium 144, potassium 3.6, BUN 15, creatinine 1.01, glucose 109, calcium 8.7, troponin 143, blood pressure 236/80 trending down to 192/85, heart rate 54, temperature 98.0 F, O2 saturation 96% on room air. Chest x-ray revealing cardiomegaly, no acute intrathoracic process is identified. Head/neck CT showed no acute intracranial hemorrhage; large right MCA distribution infarction. Please see medication orders section in the computer. On my assessment, patient denied chest pain, no headache, dizziness, diaphoresis, shortness of breaths, no abdominal pain, diarrhea, nausea, vomiting, no fever, no chills. Patient was admitted for further evaluation and medical management. Past Medical History CVA (2007), HTN, DE, Pre-diabetes Past Surgical History Hysterectomy Family History Reviewed, noncontributory to the management of this case. Past Social History The patient lives at home, denies smoking, alcohol or illicit drugs abuse. Review of Systems Constitutional: Yes: Weakness; No: Fever, Chills, Sweats, Malaise, Other Eyes: No: Pain, Vision change, Conjunctivae inflammation, Eyelid inflammation, Other, Redness ENT: Other (Blurred vision); No: Ear pain (Hearing loss), Ear discharge, Nose pain, Nose discharge, Nose congestion, Mouth pain, Mouth swelling, Throat pain, Throat swelling Respiratory: No: Cough, Dry, Shortness of breath, SOB with excertion, Wheezing, Hemoptysis, Pleuritic Pain, Sputum, Wheezing, Other Cardiovascular: Palpitations, Other (Hypertension); No: Chest Pain, Orthopnea, Paroxysmal Noc. Dyspnea, Edema, Lt Headedness Gastrointestinal: No: Nausea, Vomiting, Abdominal Pain, Diarrhea, Constipation, Melena, Hematochezia, Other Genitourinary: No Dysuria, No Frequency, No Incontinence, No Hematuria, No Retention, No Other Musculoskeletal: No: other, neck pain, shoulder pain, arm pain, back pain, hand pain, leg pain, foot pain Skin: No: Rash, Lesions, Jaundice, Bruising, Other Neurological: No: Weakness, Numbness, Incoordination, Change in speech, Confusion, Seizures, Other Allergies: Coded Allergies: NO KNOWN ALLERGIES (Unverified , 02/10/25) Medications Current Medications Medications Dose Ordered Sig/Cristine Route Start Time Stop Time Status Last Admin Dose Admin Nicardipine/ Sodium Chloride 200 ml @ 50 mls/hr Q4H IV 06/03/25 18:30 Amlodipine Besylate 10 mg DAILY PO 06/04/25 10:00 Losartan Potassium 50 mg DAILY PO 06/04/25 10:00 Aspirin 81 mg DAILY PO 06/04/25 10:00 Atorvastatin Calcium 20 mg HS PO 06/03/25 22:00 Acetaminophen/ Hydrocodone Bitart 1 tab Q4HP PRN PO 06/03/25 21:15 06/03/25 21:49 1 TAB Ondansetron HCl 4 mg Q4HP PRN IV 06/03/25 21:15 Docusate Sodium 100 mg BIDPRN PRN PO 06/03/25 21:15 Acetaminophen 650 mg Q6HP PRN PO 06/03/25 21:15 Hydralazine HCl 10 mg Q6HP PRN IV 06/03/25 21:45 UNV Exam Vital Signs Vital Signs Date Time Temp Pulse Resp B/P (MAP) Pulse Ox O2 Delivery O2 Flow Rate FiO2 06/03/25 21:53 61 20 06/03/25 21:53 98.0 199/85 (123) 99 98.0 06/03/25 20:15 Room Air* 0 21 General Appearance: Alert, Oriented X3, Cooperative, No acute distress HEENT: Atraumatic, PERRLA, EOMI, Mucous membr. moist/pink Respiratory: Normal air movement Cardiovascular: Normal S1, Normal S2, No murmurs, Other (Bradycardia) Abdominal: Normal bowel sounds, Soft, No tenderness, No hepatospenomegaly, No masses Extremities: No clubbing, No cyanosis, No edema, Normal pulses, No tenderness/swelling Skin: No rashes, No breakdown, No significant lesion Neuro: Normal speech, Normal tone, Sensation intact, Cranial nerves 3-12 NL Psych/Mental Status: Mental status NL, Mood NL Labs/Xrays Labs Test 06/03/25 17:17 06/03/25 13:44 Range/Units Troponin I High Sensitivity 135 *H </=34 ng/L White Blood Count 4.8 4.4-10.8 10^3/uL Red Blood Count 4.55 4.0-5.20 10^6/uL Hemoglobin 14.2 12.2-16.2 g/dL Hematocrit 40.8 36.0-46.0 % Mean Corpuscular Volume 89.6 80.0-100.0 fL Mean Corpuscular Hemoglobin 31.1 28.0-32.0 pg Mean Corpuscular Hemoglobin Concent 34.8 32.0-36.0 g/dL Red Cell Distribution Width 14.1 11.8-14.3 % Platelet Count 170 140-450 10^3/uL Mean Platelet Volume 8.4 6.9-10.8 fL Neutrophils (%) (Auto) 62.9 37.0-80.0 % Lymphocytes (%) (Auto) 22.2 10.0-50.0 % Monocytes (%) (Auto) 10.4 0.0-12.0 % Eosinophils (%) (Auto) 3.7 0.0-7.0 % Basophils (%) (Auto) 0.8 0.0-2.0 % Neutrophils # (Auto) 3.0 1.6-8.6 10 ^3/uL Lymphocytes # (Auto) 1.1 0.4-5.4 10 ^3/uL Monocytes # (Auto) 0.5 0-1.3 10 ^3/uL Eosinophils # (Auto) 0.2 0-0.8 10 ^3/uL Basophils # (Auto) 0 0-0.2 10 ^3/uL Nucleated Red Blood Cells 0.1 % Sodium Level 144 136-145 mmol/L Potassium Level 3.6 3.5-5.1 mmol/L Chloride Level 106 98-107 mmol/L Carbon Dioxide Level 29 20-31 mmol/L Anion Gap 9 5-15 Blood Urea Nitrogen 15 9-23 mg/dL Creatinine 1.01 0.550-1.02 mg/dL Glomerular Filtration Rate Calc 60 >90 mL/min BUN/Creatinine Ratio 14.9 10.0-20.0 Serum Glucose 109 H 74-106 mg/dL Calcium Level 8.7 8.7-10.4 mg/dL PATIENT: ABHISHEK DICKERSON ACCT: [id number] UNIT: [id number] : 1955 LOC: ER ROOM / BED: / AGE / SEX: 70 / F ADM STATUS: REG ER SERVICE 1540 ORDERING PHYSICIAN: PREET FIELDS PROCEDURE(s): [place] - ANGIO HEAD/Neck REASON: Hypertensive emergency and headache/HX CVA ORDER NUMBER(s): [id number], ACCESSION NUMBER(s): [id number] EXAM: CT ANGIO HEAD/NECK DATE OF SERVICE: 06/03/2025 04:49 PM ORDERING PHYSICIAN: PREET FIELDS REASON FOR EXAM: Hypertensive emergency and headache/HX CVA TECHNIQUE: CT of the head without contrast. CTA of the brain and neck was performed after the administration of contrast . Axial images of the head and neck are obtained. Coronal and sagittal images were then reformatted for review. MIP reformats were obtained and reviewed. COMPARISON: None FINDINGS: FINDINGS: No intracranial hemorrhage. No extra-axial fluid, mass, mass effect or midline shift. Ventricles are midline and normal in size. Right frontal, parietal and temporal encephalomalacia. Cisterns are patent. Paranasal sinuses are well pneumatized. Mastoids well pneumatized. Orbits, retrobulbar spaces unremarkable. The right common carotid artery demonstrates no high-grade stenosis. Mild-to- moderate calcification right carotid bulb. Right internal carotid artery demonstrates no high-grade stenosis. Right middle cerebral artery M1 segment is diminutive in caliber which is likely related to the underlying old large right MCA distribution infarction. The M2 and M3 segments are severely diminutive. The right anterior cerebral artery demonstrates no high-grade stenosis. The left common carotid artery demonstrates no high-grade stenosis. Mild calcification left carotid bulb. Left internal carotid artery demonstrates no high-grade stenosis. The left middle cerebral artery demonstrates no high-grade stenosis. The left anterior cerebral artery demonstrates no high-grade stenosis. The right vertebral artery demonstrates no high-grade stenosis. The left vertebral artery extremely small in caliber. 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 The bilateral posterior cerebral arteries are small in caliber especially the right posterior cerebral artery. Heterogeneous thyroid gland with multiple nodules. Moderate to advanced cervical degenerative disc disease with prominent posterior osteophytosis/ossification posterior longitudinal ligament IMPRESSION: No intracranial hemorrhage. Old large right MCA distribution infarction. The right MCA vasculature is severely diminutive which is likely secondary to the large right old MCA distribution infarction. 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 Small caliber basilar artery. origin of the bilateral posterior cerebral arteries which overall are extremely small in caliber/diminutive. Recommend obtaining MRI brain to exclude any under acute infarction. Heterogeneous thyroid gland with multiple nodules which can be further evaluated with thyroid ultrasound in the nonemergent setting. ORDERING PHYSICIAN: PREET FIELDS RESIDENT PROCEDURE(s): CXRP - CHEST PORTABLE REASON: Palpitation/ Hypertensive ORDER NUMBER(s): [id number], ACCESSION NUMBER(s): [id number] EXAM: XY CHEST PORTABLE HISTORY: Palpitation/ Hypertensive COMPARISON: Chest x-ray dated 02/10/2025 TECHNIQUE: Portable upright AP view of the chest was performed. FINDINGS: No pneumothorax, consolidative infiltrates, or pulmonary edema. The heart is enlarged. There is abundant overlying adipose tissue. IMPRESSION: Cardiomegaly and obesity. No acute intrathoracic process is identified here. SEPSIS Sepsis Screen Date sepsis recognized/suspect: Jun 03, 2025 Time Sepsis recognized/suspect: 2014 Recent Procedure: No On Antibiotic Therapy: No Respiratory Rate >20: No Heart Rate >90: No Temp<36 C (96.8 F) or >38.3 C: No SBP <90 or MAP <65 mmHG: No New Acute Mental Status Change: No Is the patient on CPAP, BIPAP,: No Physician Orders * Cardiology Consult (06/03/25 14:35) Angio Head/Neck (06/03/25 15:40) Nicardipine 20 Mg/200 Ml (Cardene Iv) (06/03/25 18:30) Echo 2d Mode Cardiac Dop (06/03/25 18:17) Mail Caller (06/03/25 ) Amlodipine Tablet (Norvasc Tablet) (06/04/25 10:00) Losartan Tablet (Cozaar Tablet) (06/04/25 10:00) Aspirin Tablet (06/04/25 10:00) Atorvastatin (Lipitor) (06/03/25 22:00) Allergies (06/03/25 21:01) Code Status (06/03/25 21:01) Oxygen Per Hour (06/03/25 21:01) Hydrocodone-Acet 5/325mg Tab ([place] 5/32 (06/03/25 21:15) Ondansetron Hcl (Zofran) (06/03/25 21:15) Docusate Sodium Capsule (Colace Capsule) (06/03/25 21:15) Fall Risk Precautions In Place QSHIFT (06/03/25 21:01) Complete Blood Count (06/04/25 04:00) Comprehensive Metabolic Panel (06/04/25 04:00) Cardiac Diet-2gna,Lofat,Lochol (06/04/25 Breakfast) Condition: Serious (06/03/25 21:01) Acetaminophen Tablet (Tylenol Tablet) (06/03/25 21:15) Maintain Bed Rest (06/03/25 21:01) Sequential Compression Device (06/03/25 ) Hydralazine Injection (Apresoline Inject (06/03/25 21:45) Admit (06/03/25 21:52) Nitroglycerin Sublingual (Ntrostat Subli (06/03/25 22:00) Morphine Sulfate Injection (06/03/25 22:00) Stat Ekg For Chest Pain (06/03/25 21:52) Notify Md Of Changes From Base (06/03/25 21:52) White Metal Corrosion Proofer For 24 Hours (06/03/25 21:52) Emergency Dysrhythmia Protocol (06/03/25 21:52) Rhythm Strips Once Every Shift (06/03/25 21:52) Oxygen By Nasal Cannula (06/03/25 21:52) Vital Signs Date Time Temp Pulse Resp B/P (MAP) Pulse Ox O2 Delivery O2 Flow Rate FiO2 06/03/25 21:53 61 20 06/03/25 21:53 98.0 61 20 199/85 (123) 99 98.0 06/03/25 21:51 199/85 06/03/25 20:27 226/80 06/03/25 20:15 54 14 96 Room Air* 0 21 06/03/25 20:15 98.0 54 14 204/93 (130) 96 98.0 226/80 (128) 06/03/25 20:15 98.0 54 14 204/93 (130) 96 98.0 226/80 (128) 06/03/25 15:03 52 16 201/71 (114) 98 Laboratory Tests Test 06/03/25 13:44 White Blood Count 4.8 10^3/uL (4.4-10.8) Medications Medications Dose Ordered Sig/Cristine Route Start Time Stop Time Status Last Admin Dose Admin Acetaminophen 650 mg ONCE ONCE PO 06/03/25 20:45 06/03/25 20:46 DC 06/03/25 20:41 650 MG Acetaminophen/ Hydrocodone Bitart 1 tab Q4HP PRN PO 06/03/25 21:15 06/03/25 21:49 1 TAB Amlodipine Besylate 10 mg ONCE ONCE PO 06/03/25 21:15 06/03/25 21:16 DC 06/03/25 21:51 10 MG Aspirin 81 mg ONCE ONCE PO 06/03/25 18:30 06/03/25 18:31 DC 06/03/25 20:26 81 MG Hydralazine HCl 10 mg ONCE ONCE IV 06/03/25 15:15 06/03/25 15:16 DC 06/03/25 20:27 10 MG Assessment/Plan Assessment/Plan NSTEMI non ST-elevation myocardial infarction Hypertensive urgency Generalized weakness 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 Admit to telemetry unit 2. Breathing treatment 3. Pain control management 4. Management of fluids and electrolytes 5. Consultation for Cardiology 6. Diagnostic tests chest x-ray 7. DVT prophylaxis-on aspirin 8. Repeat labs CBC, CMP in a.m. 9. Continue with current medical management 10. Treatment plan discussed with patient and RN. Patient verbalized understanding. Plan discussed with: Patient, Other (RN) My Orders Orders - NETTIE HAYNES DNP Procedure Category Date Status Time Amlodipine Tablet PHA 06/04/25 In Process (Norvasc Tablet) 10:00 Losartan Tablet PHA 06/04/25 In Process (Cozaar Tablet) 10:00 Aspirin Tablet PHA 06/04/25 In Process 10:00 Atorvastatin (Lipitor) PHA 06/03/25 In Process 22:00 Allergies LUIZA 06/03/25 In Process 21:01 Code Status CODE 06/03/25 Transmitted 21:01 Oxygen Per Hour RT 06/03/25 Transmitted 21:01 Hydrocodone-Acet PHA 06/03/25 In Process 5/325mg Tab ([place]way 21:15 Ondansetron Hcl PHA 06/03/25 In Process (Zofran) 21:15 Docusate Sodium PHA 06/03/25 In Process Capsule (Colace 21:15 Fall Risk Precautions LUIZA 06/03/[address] 21:01 Complete Blood Count LAB 06/04/25 Verified 04:00 Comprehensive LAB 06/04/25 Verified Metabolic Panel 04:00 Cardiac DIET 06/04/25 Transmitted Diet-2gna,Lofat,Lochol Breakfast Condition: Serious LUIZA 06/03/25 In Process 21:01 Acetaminophen Tablet PHA 06/03/25 In Process (Tylenol Tablet) 21:15 Maintain Bed Rest LUIZA 06/03/25 In Process 21:01 Sequential LUIZA 06/03/25 In Process Compression Device Hydralazine Injection [facility] 06/03/25 Logged (Apresoline Inject 21:45 Admit ADMIT 06/03/25 Verified 21:52 Nitroglycerin [facility] 06/03/25 Verified Sublingual (Ntrostat 22:00 Morphine Sulfate PHA 06/03/25 Verified Injection 22:00 Stat Ekg For Chest LUIZA 06/03/25 Verified Pain 21:[address] [facility] 06/03/25 Verified From Base 21:52 White Metal Corrosion Proofer For [facility] 06/03/25 Verified 24 Hours 21:[address] [facility] 06/03/25 Verified Protocol 21:[address] 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
[2025-06-03] MEDS ORDERED: MORPHINE SULFATE INJ 2 MG/ml SYRG IV PRN (22:00)
[2025-06-03] MEDS ORDERED: NITROGLYCERIN 0.4 MG SL TAB SL PRN (22:00)
[2025-06-04] VITALS (10 sets, daily range): BP systolic 139–170; BP diastolic 45–67; PULSE 57–76; RESP 16–20; TEMP 97.7–98.6; O2SAT 93–98
[2025-06-04] MEDS: ATORVASTATIN 20 MG TAB PO SCH (01:35)
[2025-06-04] MEDS: ONDANSETRON HCL 4 MG/2 ML VIAL IV PRN (02:46)
[2025-06-04] MEDS: hydrALAZINE HCL 20 MG/ML VL IV PRN (02:47)
--- NOTE | 2025-06-04 03:04 | ECG ---
[facility] Test Date: 2025-06-03 Test Time: 13:08:56 Pat Name: ABHISHEK DICKERSON Department: ED Room: [address] [place] [address] Gender: F Cutting Machine Operator: MARIO : 1955 Requested By: PATRICIA MTZ Order Number: [id number] Reading MD: Sebastian Cornejo Measurements Intervals [place] Rate: 59 P: 54 WA: 157 QRS: 51 QRSD: 86 T: 1 QT: 439 QTc: 435 Interpretive Statements Sinus rhythm Low voltage, precordial leads Anteroseptal infarct, old Electronically Signed On 06-04-2025 18:48:42 PDT by Sebastian Cornejo Please click the below link to view image of tracing.
--- NOTE | 2025-06-04 03:05 | ECG ---
[facility] Test Date: 2025-06-03 Test Time: 18:02:53 Pat Name: ABHISHEK DICKERSON Department: ED Room: [address] [place] [address] Gender: F Rn Or Lpn: manuelito : 1955 Requested By: PREET FIELDS Order Number: [id number] Reading MD: Sebastian Cornejo Measurements Intervals [place] Rate: 54 P: 49 WI: 160 QRS: 50 QRSD: 91 T: 2 QT: 462 QTc: 438 Interpretive Statements Sinus rhythm Low voltage, precordial leads Anteroseptal infarct, old Borderline T abnormalities, inferior leads Electronically Signed On 06-04-2025 18:49:50 PDT by Sebastian Cornejo Please click the below link to view image of tracing.
[2025-06-04 05:56] LABS: Hematocrit 43.3 % (36.0-46.0); Hemoglobin 14.9 g/dL (12.2-16.2); Mean Corpuscular Hemoglobin 30.8 pg (28.0-32.0); Mean Corpuscular Volume 89.6 fL (80.0-100.0); Nucleated Red Blood Cells % 0.1 %
[2025-06-04 06:10] LABS: Albumin 4.5 g/dL (3.2-4.8); Anion Gap 12 (5-15); BUN/Creatinine Ratio 14.3 (10.0-20.0); Bilirubin, Total 0.9 mg/dL (0.2-1.0); Blood Urea Nitrogen 13 mg/dL (9-23); Calcium 8.7 mg/dL (8.7-10.4); Carbon Dioxide 28 mmol/L (20-31); Chloride 103 mmol/L (98-107); Potassium 3.6 mmol/L (3.5-5.1); Sodium 143 mmol/L (136-145); Total Protein 7.6 g/dL (5.7-8.2)
[2025-06-04 06:15] LABS: Alanine Aminotransferase 725 U/L (7-40); Alkaline Phosphatase 181 U/L (46-116); Glucose 129 mg/dL (74-106)
[2025-06-04] MEDS: LOSARTAN POTASSIUM 50 MG TAB PO SCH (08:58)
--- NOTE | 2025-06-04 14:48 | DVHPN2 ---
Reviewed: Care Plan, H&P, Labs, Medications, Previous Orders, Radiology Changes from previous H/P or p: No Changes Eyes: No Pain, No Vision change, No Conjunctivae inflammation, No Eyelid inflammation, No Other, No Redness ENT: No Ear pain (Hearing loss), No Ear discharge, No Nose pain, No Nose discharge, No Nose congestion, No Mouth pain, No Mouth swelling, No Throat pain, No Throat swelling; Other (Blurred vision) Cardiovascular: No Chest Pain; Palpitations; No Orthopnea, No Paroxysmal Noc. Dyspnea, No Edema, No Lt Headedness; Other (Hypertension) Respiratory: No Cough, No Dry, No Shortness of breath, No SOB with excertion, No Wheezing, No Hemoptysis, No Pleuritic Pain, No Sputum, No Other Gastrointestinal: No Nausea, No Vomiting, No Abdominal Pain, No Diarrhea, No Constipation, No Melena, No Hematochezia, No Other Genitourinary: No Dysuria, No Frequency, No Incontinence, No Hematuria, No Retention, No Other Musculoskeletal: No other, No neck pain, No shoulder pain, No arm pain, No back pain, No hand pain, No leg pain, No foot pain Skin: No Rash, No Lesions, No Jaundice, No Bruising, No Other Objective Vitals Vital Signs Date Time Temp Pulse Resp B/P (MAP) Pulse Ox O2 Delivery O2 Flow Rate FiO2 06/04/25 13:00 98.2 68 17 157/53 (87) 97 98.2 06/03/25 20:15 Room Air* 0 21 Medications Current Medications Medications Dose Ordered Sig/Cristine Route Start Time Stop Time Status Last Admin Dose Admin Nicardipine/ Sodium Chloride 200 ml @ 50 mls/hr Q4H IV 06/03/25 18:30 Amlodipine Besylate 10 mg DAILY PO 06/04/25 10:00 06/04/25 08:58 10 MG Losartan Potassium 50 mg DAILY PO 06/04/25 10:00 06/04/25 08:58 50 MG Aspirin 81 mg DAILY PO 06/04/25 10:00 06/04/25 08:59 81 MG Atorvastatin Calcium 20 mg HS PO 06/03/25 22:00 06/04/25 01:35 20 MG Acetaminophen/ Hydrocodone Bitart 1 tab Q4HP PRN PO 06/03/25 21:15 06/04/25 03:00 1 TAB Ondansetron HCl 4 mg Q4HP PRN IV 06/03/25 21:15 06/04/25 02:46 4 MG Docusate Sodium 100 mg BIDPRN PRN PO 06/03/25 21:15 Acetaminophen 650 mg Q6HP PRN PO 06/03/25 21:15 Hydralazine HCl 10 mg Q6HP PRN IV 06/03/25 21:45 06/04/25 02:47 10 MG Nitroglycerin 0.4 mg Q5MINP PRN SL 06/03/25 22:00 Morphine Sulfate 2 mg Q30M PRN IV 06/03/25 22:00 Laboratory Results Laboratory Tests 06/04/25 04:57 Chemistry Test 06/04/25 04:57 Albumin 4.5 g/dL (3.2-4.8) Calcium Level 8.7 mg/dL (8.7-10.4) Total Protein 7.6 g/dL (5.7-8.2) LFT Test 06/04/25 04:57 Alanine Aminotransferase (ALT) 725 U/L (7-40) H Alkaline Phosphatase 181 U/L (46-116) H Aspartate Amino Transferase (AST) 400 U/L (13-40) H Total Bilirubin 0.9 mg/dL (0.2-1.0) Labs and/or images reviewed: Labs reviewed by me, Image(s) reviewed by me Assessment/Plan Assessment/Plan NSTEMI non ST-elevation myocardial infarction treatment per ACS protocol, cardiology consult for Dr. 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
[2025-06-04] MEDS: ACETAMINOPHEN 325 MG TAB PO PRN (15:57)
--- NOTE | 2025-06-04 16:50 | DVHINCON2 ---
Date Seen: Jun 04, 2025 Referring Physician Edgar Reason for Consultation Hypertensive emergency, elevated troponin History of Present Illness 70-year-old female with PMH for previous hemorrhagic CVA with left-sided deficit, HTN, IA, diabetes, HTN who presents to the hospital with severe he adache and elevated blood pressure. Patient states that blood pressures in the 220s at home even though taking medication. Patient endorses that she recently had her medication changed within the last 10 days and blood pressure has not been that well controlled. Endorses taking all her medication. Upon evaluation in the ER initial blood pressure was 211/64. Patient endorses that it was taking amlodipine once daily and was supposed to take losartan unknown dose twice daily though per ordered b.i.d. was not recommended from her pharmacy and therefore was once daily though not controlling bp. Patient also found to have mildly elevated troponins trending 143, 144, 135. EKG reviewed and shows sinus bradycardia 59 beats per minute, no ST and T-wave abnormality. Past Medical History As stated above Family History: Asthma Cerebrovascular accident (CVA) G8 MOTHER Diabetes mellitus G8 MOTHER FH: heart attack Hypertension G8 MOTHER Social History Denies tobacco, alcohol, or illicit drug use Allergies: Coded Allergies: NO KNOWN ALLERGIES (Unverified , 02/10/25) Home Meds Active Scripts Atorvastatin Calcium (Lipitor) 40 Mg Tab, 1 TAB PO QPM, #90 TAB 1 Refill Prov:SHIRA DENNEY MD 02/13/25 Aspirin (Aspirin) 81 Mg Tab, 81 MG PO DAILY, #90 TAB Prov:SHIRA DENNEY MD 02/13/25 Losartan Potassium (Losartan Potassium) 25 Mg Tab, 25 MG PO BID, #90 TAB Prov:SHIRA DENNEY MD 02/13/25 Amlodipine Besylate (Amlodipine Besylate) 10 Mg Tab, 1 TAB PO DAILY, #90 TAB 1 Refill Prov:SHIRA DENNEY MD 02/13/25 Current Medications Current Medications Medications (Trade) Dose Ordered Sig/Cristine Route PRN Reason Start Time Stop Time Status Last Admin Nicardipine/ Sodium Chloride 200 ml @ 50 mls/hr Q4H IV 06/03/25 18:30 06/04/25 15:37 DC Amlodipine Besylate (Norvasc Tablet) 10 mg DAILY PO 06/04/25 10:00 06/04/25 08:58 Losartan Potassium (Cozaar Tablet) 50 mg DAILY PO 06/04/25 10:00 06/04/25 08:58 Aspirin 81 mg DAILY PO 06/04/25 10:00 06/04/25 08:59 Atorvastatin Calcium (Lipitor) 20 mg HS PO 06/03/25 22:00 06/04/25 01:35 Acetaminophen/ Hydrocodone Bitart ([place] 5/325MG Tab) 1 tab Q4HP PRN PO MODERATE PAIN (4-6 PAIN SCALE) 06/03/25 21:15 06/04/25 03:00 Ondansetron HCl (Zofran) 4 mg Q4HP PRN IV NAUSEA / VOMITING 06/03/25 21:15 06/04/25 02:46 Docusate Sodium (Colace Capsule) 100 mg BIDPRN PRN PO FOR CONSTIPATION 06/03/25 21:15 Acetaminophen (Tylenol Tablet) 650 mg Q6HP PRN PO PAIN SCALE 1-3 OR TEMP>100.4 06/03/25 21:15 06/04/25 15:57 Hydralazine HCl (Apresoline Injection) 10 mg Q6HP PRN IV SBP>150 06/03/25 21:45 06/04/25 02:47 Nitroglycerin (Ntrostat Sublingual) 0.4 mg Q5MINP PRN SL FOR CHEST PAIN 06/03/25 22:00 Morphine Sulfate 2 mg Q30M PRN IV FOR CHEST PAIN 06/03/25 22:00 Review of Systems Constitutional: No: Fever, Chills, Sweats, Weakness, Malaise, Other Eyes: No: Pain, Vision change, Conjunctivae inflammation, Eyelid inflammation, Other, Redness ENT: No: Ear pain, Ear discharge, Nose pain, Nose discharge, Nose congestion, Mouth pain, Mouth swelling, Throat pain, Throat swelling, Other Respiratory: No: Cough, Dry, Shortness of breath, SOB with exertion, Wheezing, Hemoptysis, Pleuritic Pain, Sputum, Wheezing, Other Cardiovascular: ; No: Chest Pain Palpitations, Orthopnea, Paroxysmal Noc. Dyspnea, Edema, Lt Headedness, Other Gastrointestinal: No: Nausea, Vomiting, Abdominal Pain, Diarrhea, Constipation, Melena, Hematochezia, Other Genitourinary: No Dysuria, No Frequency, No Incontinence, No Hematuria, No Retention, No Other Musculoskeletal: neck pain; No: other, shoulder pain, arm pain, back pain, hand pain, leg pain, foot pain Skin: No: Rash, Lesions, Jaundice, Bruising, Other Neurological: Other (Dizziness, headache.); No: Weakness, Numbness, Incoordination, Change in speech, Confusion, Seizures Vital Signs Vital Signs Date Time Temp Pulse Resp B/P (MAP) Pulse Ox O2 Delivery O2 Flow Rate FiO2 06/04/25 13:00 98.2 68 17 157/53 (87) 97 98.2 06/03/25 20:15 Room Air* 0 21 Physical Exam General appearance: Patient is well-developed, well-nourished, in no acute distress. HEENT: Exam shows: Normocephalic, atraumatic, PERRLA, EOMI Neck: Supple, no bruits Chest: Equal chest excursion bilaterally. Breath sounds normal-no rales or wheezes. Heart: Rhythm: Regular rate; no murmur or gallop Abdomen: Exam shows: Soft, nontender, nondistended Musculoskeletal: No clubbing, no cyanosis, no lower extremity edema Dermatology: Skin warm, moist. Neurological: Exam shows: Alert and oriented x4, normal speech, left-sided weakness. Available prior records, labs, EKG, rhythm strips reviewed and interpreted Labs/Diagnostic Data Labs Test 06/04/25 04:57 06/03/25 17:17 Range/Units White Blood Count 7.3 # 4.4-10.8 10^3/uL Red Blood Count 4.83 4.0-5.20 10^6/uL Hemoglobin 14.9 12.2-16.2 g/dL Hematocrit 43.3 36.0-46.0 % Mean Corpuscular Volume 89.6 80.0-100.0 fL Mean Corpuscular Hemoglobin 30.8 28.0-32.0 pg Mean Corpuscular Hemoglobin Concent 34.3 32.0-36.0 g/dL Red Cell Distribution Width 14.4 H 11.8-14.3 % Platelet Count 183 140-450 10^3/uL Mean Platelet Volume 8.7 6.9-10.8 fL Neutrophils (%) (Auto) 80.7 H 37.0-80.0 % Lymphocytes (%) (Auto) 12.0 10.0-50.0 % Monocytes (%) (Auto) 5.7 0.0-12.0 % Eosinophils (%) (Auto) 0.7 0.0-7.0 % Basophils (%) (Auto) 0.9 0.0-2.0 % Neutrophils # (Auto) 5.9 1.6-8.6 10 ^3/uL Lymphocytes # (Auto) 0.9 0.4-5.4 10 ^3/uL Monocytes # (Auto) 0.4 0-1.3 10 ^3/uL Eosinophils # (Auto) 0 0-0.8 10 ^3/uL Basophils # (Auto) 0.1 0-0.2 10 ^3/uL Nucleated Red Blood Cells 0.1 % Sodium Level 143 136-145 mmol/L Potassium Level 3.6 3.5-5.1 mmol/L Chloride Level 103 98-107 mmol/L Carbon Dioxide Level 28 20-31 mmol/L Anion Gap 12 5-15 Blood Urea Nitrogen 13 9-23 mg/dL Creatinine 0.91 0.550-1.02 mg/dL Glomerular Filtration Rate Calc 68 >90 mL/min BUN/Creatinine Ratio 14.3 10.0-20.0 Serum Glucose 129 H 74-106 mg/dL Calcium Level 8.7 8.7-10.4 mg/dL Total Bilirubin 0.9 0.2-1.0 mg/dL Aspartate Amino Transferase (AST) 400 H 13-40 U/L Alanine Aminotransferase (ALT) 725 H 7-40 U/L Alkaline Phosphatase 181 H 46-116 U/L Total Protein 7.6 5.7-8.2 g/dL Albumin 4.5 3.2-4.8 g/dL Troponin I High Sensitivity 135 *H </=34 ng/L Assessment * Hypertensive Emergency - better controlled, continue losartan 50 mg p.o. daily titrate as tolerated. Amlodipine changing Procardia 60 mg p.o. daily titrate as tolerated. Follow up echo. Check renal ultrasound rule out renal artery stenosis. * NSTEMI, [place] Type II- continue aspirin statin. EKG negative for acute ischemic changes. Follow up echo. Likely demand ischemia in setting of hype rtensive emergency. If no significant abnormalities noted on echo, Continue outpatient follow up with Cardiology for continued ischemic workup. * History of hemorrhagic CVA with left-sided hemiparesis - CT head negative for acute changes showing old large right MCA distribution infarct. Continue management per primary team. * Elevated LFTs - management per primary team. Case Discussed with Dr Cornejo. Continue medication titration as tolerated. Amlodipine switched to Procardia. Check renal ultrasound. Follow up echo. Recommend continued outpatient follow up with a operating room scheduler for continued ischemic workup. DC planning once BP controlled if no significant abnormalities noted on echo or renal ultrasound Critical care, time spent: 48 minutes This medical document was created using an electronic medical record system with voice recognition software and computerized dictation system. Although this document has been carefully reviewed, there might still be some phonetic and typographical errors. Occasional wrong-word or ``sound-alike substitutions may have occurred due to the inherent limitations of voice recognition software. These areas are purely typographical due to imperfections of the software programs and do not reflect any compromise in the patient's medical care. Please read the chart carefully and recognize, using context, where these substitutions have occurred. Thank you for allowing me to participate in the management of this patient. The treatment plan was discussed with and agreed upon by patient/family including requesting consultants and ordering of imaging/procedures. Plan discussed with: Patient, Son NYHA Physical activity limitations: NA Date of Service: Jun 04, 2025 Billing Provider: AZAM ZHU Cardiology Common Codes: [id number] INP/OBS CARE (High), [id number] CARE 30-74 MIN AZAM ZHU Jun 04, 2025 16:50
--- NOTE | 2025-06-04 22:04 | DVH ---
RENAL DUPLEX ULTRASOUND REASON FOR EXAM: Hypertension COMPARISON: None TECHNIQUE: Grayscale imaging of both kidneys is performed. This was followed by duplex scanning of arterial inflow and venous outflow of both kidneys. FINDINGS: RIGHT: The kidney is normal in size and echogenicity and measures 10.7 cm. No mass lesion or hydronep hrosis is seen. The main renal artery peak systolic velocity is normal and measures 179 cm/s. The re nal artery/aorta ratio is not elevated. Arcuate artery restive indices (RI) measure 0.8 at the superi or pole, interpolar region, and inferior pole. The renal vein is patent. RAR: 1.1. LEFT: The kidney is normal in size and echogenicity and measures 10.1 cm. No mass lesion or hydroneph rosis is seen. The main renal artery peak systolic velocity is normal and measures 180 cm/s. The noah al artery/aorta ratio is not elevated. Arcuate artery restive index (RI) measures 0.7-0.8. The renal vein is patent. RAR: 1.1. Aorta peak systolic velocity 159 cm/sec. There is no abdominal aortic aneurysm. The urinary bladder is normal. IMPRESSION: No renal artery stenosis identified.
[2025-06-05] VITALS (7 sets, daily range): BP systolic 146–185; BP diastolic 51–88; PULSE 57–72; RESP 17–19; TEMP 97.5–98.5; O2SAT 94–99
--- NOTE | 2025-06-05 10:42 | DVHPN2 ---
Consult Progress Note Subjective Patient reports: Feels better Objective vital signs Vital Sign Date Time Temp Pulse Resp B/P (MAP) Pulse Ox O2 Delivery O2 Flow Rate FiO2 06/05/25 09:43 175/68 06/05/25 08:32 97.5 65 17 94 97.5 06/04/25 18:23 Room Air* 0 21 Total Intake and Output 06/04/25 06/04/25 06/05/25 15:00 23:00 07:00 Intake Total 240 ml Balance 240 ml medications Current Medications Medications Dose Ordered Sig/Cristine Route Start Time Stop Time Status Last Admin Dose Admin Losartan Potassium 50 mg DAILY PO 06/04/25 10:00 06/05/25 09:42 50 MG Aspirin 81 mg DAILY PO 06/04/25 10:00 06/05/25 09:42 81 MG Atorvastatin Calcium 20 mg HS PO 06/03/25 22:00 06/04/25 21:28 20 MG Acetaminophen/ Hydrocodone Bitart 1 tab Q4HP PRN PO 06/03/25 21:15 06/04/25 03:00 1 TAB Ondansetron HCl 4 mg Q4HP PRN IV 06/03/25 21:15 06/04/25 21:28 4 MG Docusate Sodium 100 mg BIDPRN PRN PO 06/03/25 21:15 Acetaminophen 650 mg Q6HP PRN PO 06/03/25 21:15 06/04/25 15:57 650 MG Hydralazine HCl 10 mg Q6HP PRN IV 06/03/25 21:45 06/04/25 21:28 10 MG Nitroglycerin 0.4 mg Q5MINP PRN SL 06/03/25 22:00 Morphine Sulfate 2 mg Q30M PRN IV 06/03/25 22:00 Nifedipine 90 mg DAILY PO 06/06/25 10:00 UNV Examination: CVS:Normal laboratory and microbiology Laboratory Tests 06/04/25 04:57 Test 06/04/25 04:57 Range/Units Serum Glucose 129 H 74-106 mg/dL Problem List/Assessment/Plan Problem List/Assessment/Plan Assessment * Hypertensive Emergency - better controlled, continue losartan 50 mg p.o. daily titrate as tolerated. Continue nifedipine 90 mg p.o. daily. Add hydralazine 25 mg p.o. t.i.d.. Plan to continue on DC p.r.n.. If BP stable. Follow up echo. Renal ultrasound negative for renal artery stenosis. * NSTEMI, Liek[place] Type II- continue aspirin statin. EKG negative for acute ischemic changes. Follow up echo. Likely demand ischemia in setting of hypertensive emergency. If no significant abnormalities noted on echo, Continue outpatient follow up with Cardiology for continued ischemic workup. * History of hemorrhagic CVA with left-sided hemiparesis - CT head negative for acute changes showing old large right MCA distribution infarct. Continue management per primary team. * Elevated LFTs - management per primary team. Case Discussed with Dr Cornejo. Continue medication titration as tolerated. Continue nifedipine and losartan, added hydralazine.. Negative renal ultrasound for renal artery stenosis. Follow up echo. Recommend continued outpatient follow up with a camp advisor for continued ischemic workup. DC planning once BP controlled if no significant abnormalities noted on echo or renal ultrasound Critical care, time spent: 35 minutes This medical document was created using an electronic medical record system with voice recognition software and computerized dictation system. Although this document has been carefully reviewed, there might still be some phonetic and typographical errors. Occasional wrong-word or ``sound-alike substitutions may have occurred due to the inherent limitations of voice recognition software. These areas are purely typographical due to imperfections of the software programs and do not reflect any compromise in the patient's medical care. Please read the chart carefully and recognize, using context, where these substitutions have occurred. Thank you for allowing me to participate in the management of this patient. The treatment plan was discussed with and agreed upon by patient/family including requesting consultants and ordering of imaging/procedures. Plan discussed with: Patient Date of Service: Jun 05, 2025 Billing Provider: AZAM ZHU Common Visit Codes: [id number] INP/OBS CARE(HIGH), [id number] CARE 30-74 MIN AZAM ZHU Jun 05, 2025 10:42
--- NOTE | 2025-06-05 11:18 | DVHPN2 ---
Reviewed: Care Plan, H&P, Labs, Medications, Previous Orders, Radiology Changes from previous H/P or p: No Changes Eyes: No Pain, No Vision change, No Conjunctivae inflammation, No Eyelid inflammation, No Other, No Redness ENT: No Ear pain (Hearing loss), No Ear discharge, No Nose pain, No Nose discharge, No Nose congestion, No Mouth pain, No Mouth swelling, No Throat pain, No Throat swelling; Other (Blurred vision) Cardiovascular: No Chest Pain; Palpitations; No Orthopnea, No Paroxysmal Noc. Dyspnea, No Edema, No Lt Headedness; Other (Hypertension) Respiratory: No Cough, No Dry, No Shortness of breath, No SOB with excertion, No Wheezing, No Hemoptysis, No Pleuritic Pain, No Sputum, No Other Gastrointestinal: No Nausea, No Vomiting, No Abdominal Pain, No Diarrhea, No Constipation, No Melena, No Hematochezia, No Other Genitourinary: No Dysuria, No Frequency, No Incontinence, No Hematuria, No Retention, No Other Musculoskeletal: No other, No neck pain, No shoulder pain, No arm pain, No back pain, No hand pain, No leg pain, No foot pain Skin: No Rash, No Lesions, No Jaundice, No Bruising, No Other Objective Vitals Vital Signs Date Time Temp Pulse Resp B/P (MAP) Pulse Ox O2 Delivery O2 Flow Rate FiO2 06/05/25 09:43 175/68 06/05/25 08:32 97.5 65 17 94 97.5 06/04/25 18:23 Room Air* 0 21 Intake/Output Intake and Output 06/05/25 07:00 Intake Total 240 ml Balance 240 ml Intake Oral 240 ml # Voids 2 Medications Current Medications Medications Dose Ordered Sig/Cristine Route Start Time Stop Time Status Last Admin Dose Admin Losartan Potassium 50 mg DAILY PO 06/04/25 10:00 06/05/25 09:42 50 MG Aspirin 81 mg DAILY PO 06/04/25 10:00 06/05/25 09:42 81 MG Atorvastatin Calcium 20 mg HS PO 06/03/25 22:00 06/04/25 21:28 20 MG Acetaminophen/ Hydrocodone Bitart 1 tab Q4HP PRN PO 06/03/25 21:15 06/04/25 03:00 1 TAB Ondansetron HCl 4 mg Q4HP PRN IV 06/03/25 21:15 06/04/25 21:28 4 MG Docusate Sodium 100 mg BIDPRN PRN PO 06/03/25 21:15 Acetaminophen 650 mg Q6HP PRN PO 06/03/25 21:15 06/04/25 15:57 650 MG Hydralazine HCl 10 mg Q6HP PRN IV 06/03/25 21:45 06/04/25 21:28 10 MG Nitroglycerin 0.4 mg Q5MINP PRN SL 06/03/25 22:00 Morphine Sulfate 2 mg Q30M PRN IV 06/03/25 22:00 Nifedipine 90 mg DAILY PO 06/06/25 10:00 Hydralazine HCl 25 mg Q8HR PO 06/05/25 14:00 Laboratory Results Laboratory Tests 06/04/25 04:57 Labs and/or images reviewed: Labs reviewed by me, Image(s) reviewed by me Assessment/Plan Assessment/Plan NSTEMI non ST-elevation myocardial infarction treatment per ACS protocol, cardiology consult for Dr. ventura appreciated, echocardiogram result pending Hypertensive urgency blood pressure 211/64 renal arterial ultrasound negative, losartan hydralazine nifedipine Generalized weakness Old cardioembolic stroke with hemiparesis History of [place] Time spent 55 minutes Advanced care planning time 20 minutes Patient is full code Family conference with the caregiver at 10:00 a.m. Friday Plan discussed with: Patient My Orders Orders - SHIRA DENNEY MD Procedure Category Date Status Time * Cardiology Consult CONS 06/04/25 Transmitted 14:45 Date of Service: Jun 05, 2025 Billing Provider: SHIRA DENNEY MD Common Visit Codes: [id number] INP/OBS CARE(HIGH) SHIRA DENNEY MD Jun 05, 2025 11:18
[2025-06-06] VITALS (7 sets, daily range): BP systolic 142–171; BP diastolic 60–75; PULSE 62–84; RESP 16–18; TEMP 97.4–98.4; O2SAT 95–97
[2025-06-06] MEDS: LOSARTAN POTASSIUM 50 MG TAB PO SCH (10:02)
--- NOTE | 2025-06-06 11:29 | DVHPN2 ---
Reviewed: Care Plan, H&P, Labs, Medications, Previous Orders, Radiology Changes from previous H/P or p: No Changes Eyes: No Pain, No Vision change, No Conjunctivae inflammation, No Eyelid inflammation, No Other, No Redness ENT: No Ear pain (Hearing loss), No Ear discharge, No Nose pain, No Nose discharge, No Nose congestion, No Mouth pain, No Mouth swelling, No Throat pain, No Throat swelling; Other (Blurred vision) Cardiovascular: No Chest Pain; Palpitations; No Orthopnea, No Paroxysmal Noc. Dyspnea, No Edema, No Lt Headedness; Other (Hypertension) Respiratory: No Cough, No Dry, No Shortness of breath, No SOB with excertion, No Wheezing, No Hemoptysis, No Pleuritic Pain, No Sputum, No Other Gastrointestinal: No Nausea, No Vomiting, No Abdominal Pain, No Diarrhea, No Constipation, No Melena, No Hematochezia, No Other Genitourinary: No Dysuria, No Frequency, No Incontinence, No Hematuria, No Retention, No Other Musculoskeletal: No other, No neck pain, No shoulder pain, No arm pain, No back pain, No hand pain, No leg pain, No foot pain Skin: No Rash, No Lesions, No Jaundice, No Bruising, No Other Objective Vitals Vital Signs Date Time Temp Pulse Resp B/P (MAP) Pulse Ox O2 Delivery O2 Flow Rate FiO2 06/06/25 10:02 160/70 06/06/25 09:00 97.4 62 17 95 97.4 06/04/25 18:23 Room Air* 0 21 Intake/Output Intake and Output 06/06/25 07:00 Intake Total 2730 ml Output Total 1 ml Balance 2729 ml Intake Oral 2730 ml Output Stool Total 1 ml # Voids 8 Medications Current Medications Medications Dose Ordered Sig/Cristine Route Start Time Stop Time Status Last Admin Dose Admin Aspirin 81 mg DAILY PO 06/04/25 10:00 06/06/25 10:01 81 MG Atorvastatin Calcium 20 mg HS PO 06/03/25 22:00 06/05/25 22:41 20 MG Acetaminophen/ Hydrocodone Bitart 1 tab Q4HP PRN PO 06/03/25 21:15 06/06/25 01:12 1 TAB Ondansetron HCl 4 mg Q4HP PRN IV 06/03/25 21:15 06/04/25 21:28 4 MG Docusate Sodium 100 mg BIDPRN PRN PO 06/03/25 21:15 Acetaminophen 650 mg Q6HP PRN PO 06/03/25 21:15 06/04/25 15:57 650 MG Hydralazine HCl 10 mg Q6HP PRN IV 06/03/25 21:45 06/04/25 21:28 10 MG Nitroglycerin 0.4 mg Q5MINP PRN SL 06/03/25 22:00 Morphine Sulfate 2 mg Q30M PRN IV 06/03/25 22:00 Nifedipine 90 mg DAILY PO 06/06/25 10:00 06/06/25 10:01 90 MG Hydralazine HCl 25 mg Q8HR PO 06/05/25 14:00 06/06/25 05:35 25 MG Losartan Potassium 100 mg DAILY PO 06/06/25 10:00 06/06/25 10:02 100 MG Laboratory Results Laboratory Tests 06/04/25 04:57 Labs and/or images reviewed: Labs reviewed by me, Image(s) reviewed by me Assessment/Plan Assessment/Plan NSTEMI non ST-elevation myocardial infarction treatment per ACS protocol, cardiology consult for Dr. ventura appreciated, echocardiogram result pending Hypertensive urgency blood pressure 211/64 renal arterial ultrasound negative, losartan hydralazine nifedipine Generalized weakness History of hemorrhagic stroke with left hemiplegia 2007, CT head done during this visit shows old infarcts History of [place] Time spent 55 minutes Advanced care planning time 20 minutes Patient is full code Physical therapy ordered Patient lives alone Plan discussed with: Patient Date of Service: Jun 06, 2025 Billing Provider: SHIRA DENNEY MD Common Visit Codes: [id number] INP/OBS CARE(HIGH) SHIRA DENNEY MD Jun 06, 2025 11:28
[2025-06-07] VITALS (8 sets, daily range): BP systolic 134–173; BP diastolic 58–75; PULSE 68–103; RESP 16–20; TEMP 97.2–98.6; O2SAT 94–98
--- NOTE | 2025-06-07 11:49 | DVHPN2 ---
Reviewed: Care Plan, H&P, Labs, Medications, Previous Orders, Radiology Changes from previous H/P or p: No Changes Eyes: No Pain, No Vision change, No Conjunctivae inflammation, No Eyelid inflammation, No Other, No Redness ENT: Other Cardiovascular: Palpitations, Other Respiratory: No Cough, No Dry, No Shortness of breath, No SOB with excertion, No Wheezing, No Hemoptysis, No Pleuritic Pain, No Sputum, No Other Gastrointestinal: No Nausea, No Vomiting, No Abdominal Pain, No Diarrhea, No Constipation, No Melena, No Hematochezia, No Other Genitourinary: No Dysuria, No Frequency, No Incontinence, No Hematuria, No Retention, No Other Musculoskeletal: No other, No neck pain, No shoulder pain, No arm pain, No back pain, No hand pain, No leg pain, No foot pain Skin: No Rash, No Lesions, No Jaundice, No Bruising, No Other Objective Vitals Vital Signs Date Time Temp Pulse Resp B/P (MAP) Pulse Ox O2 Delivery O2 Flow Rate FiO2 06/07/25 11:19 164/67 06/07/25 08:19 98.4 74 19 94 98.4 06/06/25 20:00 Room Air* 0 21 Intake/Output Intake and Output 06/07/25 07:00 Intake Total 1250 ml Balance 1250 ml Intake Oral 1250 ml # Voids 5 # Bowel Movements 1 Medications Current Medications Medications Dose Ordered Sig/Cristine Route Start Time Stop Time Status Last Admin Dose Admin Aspirin 81 mg DAILY PO 06/04/25 10:00 06/07/25 11:19 81 MG Atorvastatin Calcium 20 mg HS PO 06/03/25 22:00 06/06/25 21:49 20 MG Acetaminophen/ Hydrocodone Bitart 1 tab Q4HP PRN PO 06/03/25 21:15 06/06/25 01:12 1 TAB Ondansetron HCl 4 mg Q4HP PRN IV 06/03/25 21:15 06/04/25 21:28 4 MG Docusate Sodium 100 mg BIDPRN PRN PO 06/03/25 21:15 Acetaminophen 650 mg Q6HP PRN PO 06/03/25 21:15 06/04/25 15:57 650 MG Hydralazine HCl 10 mg Q6HP PRN IV 06/03/25 21:45 06/06/25 17:25 10 MG Nitroglycerin 0.4 mg Q5MINP PRN SL 06/03/25 22:00 Morphine Sulfate 2 mg Q30M PRN IV 06/03/25 22:00 Nifedipine 90 mg DAILY PO 06/06/25 10:00 06/07/25 11:19 90 MG Hydralazine HCl 25 mg Q8HR PO 06/05/25 14:00 06/07/25 05:00 25 MG Losartan Potassium 100 mg DAILY PO 06/06/25 10:00 06/07/25 11:19 100 MG Laboratory Results Laboratory Tests 06/04/25 04:57 Labs and/or images reviewed: Labs reviewed by me, Image(s) reviewed by me Assessment/Plan Assessment/Plan NSTEMI non ST-elevation myocardial infarction treatment per ACS protocol, cardiology consult for Dr. ventura appreciated, echocardiogram result pending Hypertensive emergency blood pressure 211/64 renal arterial ultrasound negative, losartan hydralazine nifedipine Generalized weakness History of hemorrhagic stroke with left hemiplegia 2007, CT head done during this visit shows old infarcts History of [place] Noncompliance Time spent 55 minutes Advanced care planning time 20 minutes Patient is full code Physical therapy ordered Patient lives alone Plan discussed with: Patient Date of Service: Jun 07, 2025 Billing Provider: SHIRA DENNEY MD Common Visit Codes: [id number] CARE 30-74 MIN SHIRA DENNEY MD Jun 07, 2025 11:49
--- NOTE | 2025-06-07 11:54 | DVHDS2 ---
Discharge Summary Date of Admission Jun 03, 2025 at 21:52 Date of Discharge: Jun 07, 2025 Admitting Diagnosis Elevated blood pressure headache palpitations Wounds: None Labs/Diagnostic Data: Laboratory Results Test 06/04/25 04:57 06/03/25 17:17 White Blood Count 7.3 10^3/uL (4.4-10.8) Red Blood Count 4.83 10^6/uL (4.0-5.20) Hemoglobin 14.9 g/dL (12.2-16.2) Hematocrit 43.3 % (36.0-46.0) Mean Corpuscular Volume 89.6 fL (80.0-100.0) Mean Corpuscular Hemoglobin 30.8 pg (28.0-32.0) Mean Corpuscular Hemoglobin Concent 34.3 g/dL (32.0-36.0) Red Cell Distribution Width 14.4 % (11.8-14.3) Platelet Count 183 10^3/uL (140-450) Mean Platelet Volume 8.7 fL (6.9-10.8) Neutrophils (%) (Auto) 80.7 % (37.0-80.0) Lymphocytes (%) (Auto) 12.0 % (10.0-50.0) Monocytes (%) (Auto) 5.7 % (0.0-12.0) Eosinophils (%) (Auto) 0.7 % (0.0-7.0) Basophils (%) (Auto) 0.9 % (0.0-2.0) Neutrophils # (Auto) 5.9 10 ^3/uL (1.6-8.6) Lymphocytes # (Auto) 0.9 10 ^3/uL (0.4-5.4) Monocytes # (Auto) 0.4 10 ^3/uL (0-1.3) Eosinophils # (Auto) 0 10 ^3/uL (0-0.8) Basophils # (Auto) 0.1 10 ^3/uL (0-0.2) Nucleated Red Blood Cells 0.1 % Sodium Level 143 mmol/L (136-145) Potassium Level 3.6 mmol/L (3.5-5.1) Chloride Level 103 mmol/L (98-107) Carbon Dioxide Level 28 mmol/L (20-31) Anion Gap 12 (5-15) Blood Urea Nitrogen 13 mg/dL (9-23) Creatinine 0.91 mg/dL (0.550-1.02) Glomerular Filtration Rate Calc 68 mL/min (>90) BUN/Creatinine Ratio 14.3 (10.0-20.0) Serum Glucose 129 mg/dL (74-106) Calcium Level 8.7 mg/dL (8.7-10.4) Total Bilirubin 0.9 mg/dL (0.2-1.0) Aspartate Amino Transferase (AST) 400 U/L (13-40) Alanine Aminotransferase (ALT) 725 U/L (7-40) Alkaline Phosphatase 181 U/L (46-116) Total Protein 7.6 g/dL (5.7-8.2) Albumin 4.5 g/dL (3.2-4.8) Troponin I High Sensitivity 135 ng/L (</=34) Other Laboratory Tests 06/04/25 04:57 Brief Hx & Hospital Course: 70-year-old female with a history of hypertension [place] previous hemorrhagic stroke left hemiplegia in 2007 came in for uncontrolled blood pressure for the last one week per patient she has been taking her medications but blood pressure is very high . Also complaining of throbbing headache palpitations and chest pains when she came to the ER blood pressure systolic 211. Renal arterial ultrasound was negative started on losartan hydralazine nifedipine seen by cardiology Dr. Cornejo. CT head was negative. Patient received physical therapy blood pressure reasonably controlled patient lives alone with a high chance for falling with the uncontrolled blood pressure. e Discussed with the patient and patient will be discharged to care home facility for medication management physical therapy and blood pressure control. Consults/Reason for consult Cardiology Operations or Procedures Echocardiogram CT head Condition at Discharge: Fair Final Diagnosis/Problems List NSTEMI non ST-elevation myocardial infarction treatment per ACS protocol, cardiology consult for Dr. cornejo appreciated, echocardiogram result pending Hypertensive emergency blood pressure 211/64 renal arterial ultrasound negative, losartan hydralazine nifedipine Generalized weakness History of hemorrhagic stroke with left hemiplegia 2007, CT head done during this visit shows old infarcts History of [place] Noncompliance Discharge Disposition: [facility] Facility Discharge Instruct/Medications Diet: Cardiac 2g Na,low cholest Activity: Light activity Follow Up/Referral: [facility] Medications: see list Scheduled Amlodipine Besylate (Amlodipine Besylate), 1 TAB PO DAILY Aspirin (Aspirin), 81 MG PO DAILY Atorvastatin Calcium (Lipitor), 1 TAB PO QPM Cholecalciferol (Gnp Vitamin D Super Stren), 1 TAB PO DAILY, (Reported) Clopidogrel Bisulfate (Clopidogrel), 1 TAB PO DAILY, (Reported) Hydralazine Hcl (Hydralazine Hcl), 1 TAB PO BID, (Reported) Lidocaine-Prilocaine (Lidocaine/Prilocaine), 1 APPLIC EX DAILY, (Reported) Lorazepam (Lorazepam), 1 TAB PO TID, (Reported) Losartan Potassium (Losartan Potassium), 1 TAB PO DAILY, (Reported) Meloxicam (Meloxicam), 1 TAB PO DAILY, (Reported) Nifedipine (Nifedipine Er), 1 TAB PO DAILY, (Reported) Tizanidine Hydrochloride (Tizanidine Hcl), 1 TAB PO TID, (Reported) Vibegron (Gemtesa), 1 TAB PO DAILY, (Reported) 39 (Time taken for discharge summary 39 minutes) Discharge Statement: "Patient was advised to return to the ER or call 911 if any headaches, dizziness, shortness of breath, chest pain, abdominal pain, bleeding, fevers, or worsening of medical condition. Patient was counseled about treatment plan, medications, possible side effects, patientverbalized understanding. All questions were answered to the best of my ability. This discharge took greater then 30 minutes in planning, reviewing documentation, counseling the patient, and discussing with other team members." ASSESSMENT ASSESSMENT Hospital Course Improved Assessment NSTEMI non ST-elevation myocardial infarction treatment per ACS protocol, cardiology consult for Dr. cornejo appreciated, echocardiogram result pending Hypertensive emergency blood pressure 211/64 renal arterial ultrasound negative, losartan hydralazine nifedipine Generalized weakness History of hemorrhagic stroke with left hemiplegia 2007, CT head done during this visit shows old infarcts History of [place] Noncompliance Date of Service: Jun 07, 2025 Billing Provider: SHIRA DENNEY MD Common Visit Codes: 98014-UYK/OBS DISCH DAY >30min SHIRA DENNEY MD Jun 07, 2025 11:54
[2025-06-08 01:00] VITALS: BP 161/67; PULSE 74; RESP 16; TEMP 98.8; O2SAT 93
[2025-06-08 05:00] VITALS: BP 162/77; PULSE 69; RESP 16; TEMP 98.5; O2SAT 98
--- NOTE | 2025-06-08 07:22 | ECG ---
[facility] Test Date: 2025-06-04 Test Time: 22:29:06 Pat Name: ABHISHEK DICKERSON Department: Room: [address] [place] [address] 1 Gender: F Strip Roller: angi : 1955 Requested By: JESSICA RYAN Order Number: [id number] Reading MD: Jessica Ryan Measurements Intervals [place] Rate: 72 P: 65 GA: 168 QRS: 79 QRSD: 88 T: 22 QT: 433 QTc: 474 Interpretive Statements Sinus rhythm Borderline T wave abnormalities Electronically Signed On 06-13-2025 15:19:51 PDT by Jessica Ryan Please click the below link to view image of tracing.
[2025-06-08 08:00] VITALS: PULSE 72
[2025-06-08 09:00] VITALS: BP 171/80; PULSE 81; RESP 18; TEMP 98; O2SAT 95
--- NOTE | 2025-06-08 09:59 | DVHPN2 ---
Reviewed: Care Plan, H&P, Labs, Medications, Previous Orders, Radiology Changes from previous H/P or p: No Changes Eyes: No Pain, No Vision change, No Conjunctivae inflammation, No Eyelid inflammation, No Other, No Redness ENT: Other Cardiovascular: Palpitations, Other Respiratory: No Cough, No Dry, No Shortness of breath, No SOB with excertion, No Wheezing, No Hemoptysis, No Pleuritic Pain, No Sputum, No Other Gastrointestinal: No Nausea, No Vomiting, No Abdominal Pain, No Diarrhea, No Constipation, No Melena, No Hematochezia, No Other Genitourinary: No Dysuria, No Frequency, No Incontinence, No Hematuria, No Retention, No Other Musculoskeletal: No other, No neck pain, No shoulder pain, No arm pain, No back pain, No hand pain, No leg pain, No foot pain Skin: No Rash, No Lesions, No Jaundice, No Bruising, No Other Objective Vitals Vital Signs Date Time Temp Pulse Resp B/P (MAP) Pulse Ox O2 Delivery O2 Flow Rate FiO2 06/08/25 09:00 98.0 81 18 171/80 (110) 95 98.0 06/08/25 08:00 Room Air* 0 21 Intake/Output Intake and Output 06/08/25 07:00 Intake Total 1150 ml Balance 1150 ml Intake Oral 1150 ml # Voids 9 Medications Current Medications Medications Dose Ordered Sig/Cristine Route Start Time Stop Time Status Last Admin Dose Admin Aspirin 81 mg DAILY PO 06/04/25 10:00 06/08/25 08:10 81 MG Atorvastatin Calcium 20 mg HS PO 06/03/25 22:00 06/07/25 21:12 20 MG Acetaminophen/ Hydrocodone Bitart 1 tab Q4HP PRN PO 06/03/25 21:15 06/06/25 01:12 1 TAB Ondansetron HCl 4 mg Q4HP PRN IV 06/03/25 21:15 06/04/25 21:28 4 MG Docusate Sodium 100 mg BIDPRN PRN PO 06/03/25 21:15 Acetaminophen 650 mg Q6HP PRN PO 06/03/25 21:15 06/04/25 15:57 650 MG Hydralazine HCl 10 mg Q6HP PRN IV 06/03/25 21:45 06/07/25 13:26 10 MG Nitroglycerin 0.4 mg Q5MINP PRN SL 06/03/25 22:00 Morphine Sulfate 2 mg Q30M PRN IV 06/03/25 22:00 Nifedipine 90 mg DAILY PO 06/06/25 10:00 06/08/25 08:13 90 MG Hydralazine HCl 25 mg Q8HR PO 06/05/25 14:00 06/08/25 05:30 25 MG Losartan Potassium 100 mg DAILY PO 06/06/25 10:00 06/08/25 08:12 100 MG Laboratory Results Laboratory Tests 06/04/25 04:57 Labs and/or images reviewed: Labs reviewed by me, Image(s) reviewed by me Assessment/Plan Assessment/Plan NSTEMI non ST-elevation myocardial infarction treatment per ACS protocol, cardiology consult for Dr. ventura appreciated, echocardiogram result pending Hypertensive emergency blood pressure 211/64 renal arterial ultrasound negative, losartan hydralazine nifedipine Generalized weakness History of hemorrhagic stroke with left hemiplegia 2007 secondary to uncontrolled hypertension, CT head done during this visit shows old infarcts History of [place] Noncompliance Patient lives alone Patient was discharged to halfway facility for cardiac rehab on 06/07/2025 Awaiting authorization from [facility] Plan discussed with: Patient My Orders Orders - SHIRA DENNEY MD Procedure Category Date Status Time Pt Request For Service PT 06/07/25 Logged 11:42 * Electroneurodiagnostic Technologist CONS 06/07/25 Transmitted Consult Discharge DISCHARGE 06/07/25 Transmitted 11:48 Date of Service: Jun 08, 2025 Billing Provider: SHIRA DENNEY MD Common Visit Codes: [id number] INP/OBS CARE(HIGH) SHIRA DENNEY MD Jun 08, 2025 09:59
[2025-06-08 13:00] VITALS: BP 125/90; PULSE 83; RESP 20; TEMP 98.3; O2SAT 98
== END 2025-06-08 16:12 | DRG 281 ==
LOC: ER 12:56 → OVERFLOW 21:52 → TELE-EAST 06-04 18:21
PROVIDERS: ADMIT Family Medicine; ATTEND Family Medicine
DX: I16.1 Hypertensive emergency (principal); I69.254 Hemiplegia and hemiparesis following other nontraumatic intracranial hemorrhage affecting left non-dominant side; I21.A1 Myocardial infarction type 2; E11.9 Type 2 diabetes mellitus without complications; I10 Essential (primary) hypertension; I25.2 Old myocardial infarction; Z79.82 Long term (current) use of aspirin; Z79.899 Other long term (current) drug therapy; Z82.3 Family history of stroke; Z82.49 Family history of ischemic heart disease and other diseases of the circulatory system; Z82.5 Family history of asthma and other chronic lower respiratory diseases; Z83.3 Family history of diabetes mellitus; Z90.710 Acquired absence of both cervix and uterus; Z91.199 Patient's noncompliance with other medical treatment and regimen due to unspecified reason
CPT/HCPCS: 36415; 70496; 70498; 71045; 80048; 80053; 84484; 85025; 93005; 93975; 96374; 97110; 97116; 97163; 97530; G0378; J2405